=== PATIENT | female | born 1955 | race Caucasian/White ===

== ENCOUNTER 2024-08-26 07:56 | Inpatient (IN) ==
[2024-08-26 08:54] LABS: Hematocrit (blood only) 42.1 % (37.0-47.0); Hemoglobin 14.0 g/dl (12.0-16.0); Immature Granulocytes # (auto) 0.03 K/uL (0.01-0.20); Immature Granulocytes % (auto) 0.5 %; Mean Corpuscular Hemoglobin 28.9 pg (25.0-34.0); Mean Corpuscular Volume 86.8 fL (80.0-100.0); Platelet Count 206 K/uL (130-400); RDW Standard Deviation 45.0 fL (36.4-46.3); Red Blood Count 4.85 M/uL (4.20-5.40); White Blood Count 6.51 K/ul (4.8-10.8)
[2024-08-26 09:03] LABS: Alanine Aminotransferase 23.0 U/L (7-52); Albumin Globulin Ratio 1.5 (0.9-2); Albumin Level 4.2 gm/dl (3.4-5.0); Alkaline Phosphatase 64.0 U/L (34-104); Anion Gap 7.0 (3-11); Bilirubin,Total 1.6 mg/dl (0.2-1.0); Blood Urea Nitrogen 12.0 mg/dl (6-23); Calcium 9.7 mg/dl (8.6-10.3); Carbon Dioxide 25.0 mmol/L (21-32); Chloride 109.0 mmol/L (98-107); Creatinine Clr Calc Pharmacy 72.2 ml/min; Globulin 2.8 gm/dl (2.5-4.0); Glucose 101.0 mg/dl (70-99(Fasting)); Lipase 10.0 U/L (11-82); Magnesium 1.9 mg/dl (1.7-2.4); Potassium 4.0 mmol/L (3.5-5.1); Sodium 141.0 mmol/L (136-145); Total Protein 7.0 gm/dl (6.0-8.3)
--- NOTE | 2024-08-26 09:04 | XRay Report ---
EXAM: Radiograph of the Chest 1 View INDICATION: TECHNIQUE: Frontal view of the chest. COMPARISON: No relevant prior studies available. FINDINGS: Lungs and pleural spaces: Right lung hyperinflated and clear. There is volume loss in the left hemithorax with parenchymal and pleural scarring. The trachea is deviated to the left. Heart: Shape and configuration within normal limits allowing for technique. Mediastinum: Right paratracheal soft tissue density projecting over the spine. Bones/joints: No fracture, erosion or dislocation. Soft tissues: No abnormality noted. No radiopaque foreign body noted. Upper abdomen: No abnormality noted. IMPRESSION: Volume loss in the left lung consistent with scarring. Tracheal deviation is likely reflecting at least in part tethering. Mass effect from right paratracheal nodule or thyroid mass not excluded. ACT 112: N/A Electronically signed by Soledad Aguilar 08-26-2024 09:03 AM
[2024-08-26 09:22] LABS: INR 1.0 (0.9-1.1); Prothrombin Time 10.9 Seconds (9.0-12.0)
--- NOTE | 2024-08-26 10:10 | Emergency Department Note ---
Impression & Plan Generalized weakness, Acute UTI (urinary tract infection) ED Provider Note HISTORY OF PRESENT ILLNESS: Patient is a 69-year-old female presenting with multiple complaints. Patient states that since last night she has been feeling generally unwell. Reports that she feels very shaky and unsteady. She states that she feels like "I am burning up from the inside." She reports nausea but denies any vomiting. Denies any diarrhea. Reports some left upper quadrant abdominal pain. She started on Creon last night due to her decreased pancreatic function. She also reports she took her first dose of sertraline last night. She is unsure if she is having a reaction to the medication. She denies any measured fevers at home. She denies any chest pain but reports pain in her upper back. She denies any dysuria but reports that her urine was "red tinge at this morning." ROS: as above PHYSICAL EXAM: Constitutional: Patient appears in no acute distress. HENT: Head: Normocephalic and atraumatic. Eyes: EOMI, PERRL Mouth/Throat: Mucous membranes moist. Neck: Trachea midline. Neck supple. Cardiovascular: RRR, No murmurs, rubs or gallops. Intact distal pulses. Pulmonary/Chest: No respiratory distress. Breath sounds clear and equal bilaterally. No wheezes or rales. Abdominal: Abdomen soft, no tenderness, rebound or guarding. Musculoskeletal: No edema, tenderness or deformity noted. Skin: Warm and dry. No rash, erythema, pallor or cyanosis Psychiatric: Appropriate mood and affect for situation. Neurological: Alert and keenly responsive. CN II-XII grossly intact, moving all extremities equally and fully. MDM: - Vitals signs showed hypertension and bradycardia. - History obtained via patient. History as above. - Chronic conditions affecting care: COPD; lung cancer; GERD; sinusitis - Differential diagnoses include, but are not limited to: Pneumonia; viral syndrome; UTI; ACS; electrolyte abnormality - Order placed for continuous cardiac monitoring. At this time, monitor showed rate of 45 bpm with normal sinus rhythm, per my interpretation. - External medical records reviewed. ENT office visit note dated 09/03/2024 was reviewed. Patient was seen in the clinic for maxillary sinusitis. Plan is for endoscopic sinus surgery next week. - EKG image interpreted by myself showed normal sinus rhythm. Rate bradycardic at 47 bpm. QTc 474. No acute ischemic changes. - Laboratory workup interpreted by myself showed normal WBC; normal PT/INR; normal procalcitonin; stable electrolytes; elevated total bilirubin (1.6); normal troponin; normal CK; normal AST/ALT; normal lipase - CXR image reviewed by myself was negative for pneumonia, per my interpretation. Radiology notes of tracheal deviation "at least in part tethering and mass effect from the right peritracheal nodule or thyroid mass not excluded." - Viral respiratory panel negative - CT chest wo contrast showed multiple small groundglass infiltrates in the upper lobes and a small focus in the superior segment of the right lower lobe. There is are nonspecific densities. There is also noted to be scattered nonspecific noncalcified micronodules. - CT abdomen/pelvis wo contrast showed large fatty liver with no ductal dilatation and mild scarring of the left kidney. - UA showed evidence of infection - Patient given 1L NS, 4 mg IV zofran and 1g IV tylenol in ER. Given 2g IV rocephin for UTI. - Discussed results with the patient. She is still not feeling well and does not feel comfortable going home. She does report that that burning sensation that she presented with and that sensation of feeling hot inside has improved. This is her reported third UTI in the last month. - Discussion was had with case fitter about patient's case and need for admission - Hospitalist consulted for admission at 13:55. - Patient admitted to [facility] service for further evaluation and management. ASSESSMENT AND PLAN: Diagnosis: Generalized weakness; acute UTI Plan: Admit Past Med/Surg History Problem List (Updated 08/26/24 @ 14:01 by Angeline Langston MD) Acute UTI (urinary tract infection) (Acute) Generalized weakness (Acute) Encounter for pre-operative examination Dry mouth (Acute) Dysphagia Maxillary sinusitis Medical History Acid reflux Atherosclerotic heart disease follows w/ Dr Steiner, reason for plavix COPD (chronic obstructive pulmonary disease) uses inhalers daily, follows w/ Dr [place]ia [place] [facility] Dysphagia improved since dilation Elevated pancreatic enzyme currently under surveillance Endometriosis hx Fatty liver Gastroparesis eating small meals GERD (gastroesophageal reflux disease) History of COVID-19 (02/2024) no hosp; resolved History of esophageal dilatation (07/2024) Lung cancer (2023) no chemo or radiation Neuropathy bilat feet Raynauds syndrome Venous (peripheral) insufficiency occasional bilat edema, has not needed lasix in ~1 year Surgical History H/O hernia repair H/O tubal ligation History of appendectomy History of bronchoscopy History of esophagogastroduodenoscopy (EGD) (07/2024) History of lobectomy of lung (04/2023) lung cancer, upper left lobe, [facility] Hx of colonoscopy Hx of laparoscopy Family History Mother Heart disease Hypertension Social History Smoking Status: Former smoker Tobacco Type: Cigarettes Second Hand Exposure: No; Do You Dip or Chew Tobacco: No; Hx Alcohol Use: No Hx Substance Use: No Preferred Language: Bulgarian Communication Ability: Effective Runner On Required: No Beliefs That Will Affect Care: None marital status: Current Living Situation: Spouse current occupational status: retired Feels Safe at Home: Yes Gender Identity: Female Assistive Devices: Glasses Allergies Allergies Allergy/AdvReac Type Severity Reaction Status Date / Time aspirin Allergy Severe welts,turns Unverified 08/23/24 09:05 blue budesonide Allergy Unknown Palpitation Unverified 08/23/24 09:05 [From Breztri Aerosphere] s fluticasone furoate Allergy Unknown sob Unverified 08/23/24 09:05 [From Trelegy Ellipta] formoterol Allergy Unknown Palpitation Unverified 08/23/24 09:05 [From Breztri Aerosphere] s glycopyrrolate Allergy Unknown Palpitation Unverified 08/23/24 09:05 [From Breztri Aerosphere] s Iodinated Contrast Media Allergy Unknown welts Unverified 08/23/24 09:05 olodaterol Allergy Unknown Palpitation Unverified 08/23/24 09:05 [From Stiolto Respimat] s tiotropium Allergy Unknown Palpitation Unverified 08/23/24 09:57 [From Stiolto Respimat] s umeclidinium Allergy Unknown sob Unverified 08/23/24 09:57 [From [facility]] vilanterol Allergy Unknown sob Unverified 08/23/24 09:57 [From [facility]] Home Meds Home Medications Medication Instructions Recorded Confirmed amlodipine 5 mg tablet 0 mg PO QPM 06/20/24 08/26/24 cholecalciferol (vitamin D3) 50 50 mcg PO QAM 06/20/24 08/26/24 mcg (2,000 unit) capsule dicyclomine 10 mg capsule 10 mg PO BID PRN Abdominal Pain 06/20/24 08/26/24 epinephrine 0.3 mg/0.3 mL 0.3 mg IM Q10M PRN hives 06/20/24 08/26/24 injection, auto-injector furosemide 40 mg tablet (Lasix) 40 mg PO DAILY PRN Edema 06/20/24 08/26/24 olopatadine 0.2 % eye drops 1 drp ophthalmic (eye) DAILY PRN 06/20/24 08/26/24 Allergies potassium chloride 10 mEq 10 meq PO DAILY 06/20/24 08/26/24 tablet,extended release tiotropium bromide 1.25 2 puff inhalation QAM 06/20/24 08/26/24 mcg/actuation mist for inhalation (Spiriva Respimat) Neuro Renew 1 tab PO QAM 08/23/24 08/26/24 albuterol sulfate 90 mcg/actuation 2 puff inhalation QAM 08/23/24 08/26/24 aerosol inhaler biotin 1 mg capsule 1 mg PO DAILY 08/23/24 08/26/24 pantoprazole 40 mg tablet,delayed 40 mg PO BID 08/23/24 08/26/24 release triamcinolone acetonide 0.1 % 1 applic topical BID PRN hives 08/23/24 08/26/24 topical cream sertraline 50 mg tablet 25 mg PO HS 08/24/24 08/26/24 [id number] 1 - 2 cap PO DIRECTED 08/26/24 08/26/24 36,000-114,000-180,000 unit capsule,delay rel (Creon) Results & Data (ED) Vital Signs Vital Signs - 24 hr 08/26/24 07:59 08/26/24 08:27 08/26/24 08:34 Temperature 36.6 C Temperature Source Temporal Artery Scan Pulse Rate 60 50 L Pulse Rate [Right Finger] 52 L Pulse Rhythm [Right Finger] Pulse Strength [Right Finger] Respiratory Rate 18 16 Respiratory Effort / Characteristics Non-Labored Spontaneous Non-Labored Spontaneous Respiratory Depth Normal Normal Respiratory Pattern Regular Regular Blood Pressure 126/81 Blood Pressure [Right Arm] 162/87 H Blood Pressure Mean 96 Blood Pressure Mean [Right Arm] 112 Blood Pressure Position Sitting Blood Pressure Position [Right Arm] Pulse Oximetry 96 99 Oxygen Delivery Method Room Air Room Air Sepsis Recent Fever Within 48 Hours No Sepsis New/Unexplained Change in Mental Status N/A Sepsis Action Taken by Nursing No Action Required 08/26/24 08:40 08/26/24 09:25 08/26/24 09:53 Temperature Temperature Source Pulse Rate 46 L Pulse Rate [Right Finger] 45 L 44 L Pulse Rhythm [Right Finger] Pulse Strength [Right Finger] Respiratory Rate 16 14 20 Respiratory Effort / Characteristics Non-Labored Spontaneous Non-Labored Spontaneous Respiratory Depth Normal Normal Respiratory Pattern Regular Blood Pressure Blood Pressure [Right Arm] 139/80 150/81 H Blood Pressure Mean Blood Pressure Mean [Right Arm] 99 104 Blood Pressure Position Blood Pressure Position [Right Arm] Pulse Oximetry 96 98 Oxygen Delivery Method Room Air Room Air Room Air Sepsis Recent Fever Within 48 Hours Sepsis New/Unexplained Change in Mental Status Sepsis Action Taken by Nursing 08/26/24 10:47 08/26/24 12:00 08/26/24 12:38 Temperature Temperature Source Pulse Rate 45 L Pulse Rate [Right Finger] 46 L 41 L Pulse Rhythm [Right Finger] Regular Pulse Strength [Right Finger] Normal Respiratory Rate 16 20 Respiratory Effort / Characteristics Non-Labored Non-Labored Respiratory Depth Normal Normal Respiratory Pattern Regular Regular Blood Pressure Blood Pressure [Right Arm] 140/78 140/78 Blood Pressure Mean Blood Pressure Mean [Right Arm] 98 98 Blood Pressure Position Blood Pressure Position [Right Arm] Lying Pulse Oximetry 97 99 Oxygen Delivery Method Room Air Room Air Sepsis Recent Fever Within 48 Hours Sepsis New/Unexplained Change in Mental Status Sepsis Action Taken by Nursing Laboratory Data 08/26/24 08:15 08/26/24 08:15 Lab Results 08/26/24 08/26/24 08/26/24 Range/Units 08:15 09:35 12:39 WBC 6.51 (4.8-10.8) K/ul RBC 4.85 (4.20-5.40) M/uL Hgb 14.0 (12.0-16.0) g/dl Hct 42.1 (37.0-47.0) % MCV 86.8 (80.0-100.0) fL MCH 28.9 (25.0-34.0) pg MCHC 33.3 (32.0-36.0) g/dL RDW Std Deviation 45.0 (36.4-46.3) fL RDW Coeff of Armando 14.3 (11.5-14.5) % Plt Count 206 (130-400) K/uL MPV 10.7 (9.4-12.4) fL Immature Gran % (Auto) 0.5 % Neut % (Auto) 71.7 % Lymph % (Auto) 18.1 % [place] % (Auto) 6.6 % Eos % (Auto) 2.3 % Baso % (Auto) 0.8 % Neut # (Auto) 4.67 (1.40-6.50) K/uL Lymph # (Auto) 1.18 L (1.20-3.40) K/uL [place] # (Auto) 0.43 (0.11-0.59) K/uL Eos # (Auto) 0.15 (0.00-0.50) K/uL Baso # (Auto) 0.05 (0.00-0.20) K/uL Immature Gran # (Auto) 0.03 (0.01-0.20) K/uL PT 10.9 (9.0-12.0) Seconds INR 1.0 (0.9-1.1) Sodium 141 (136-145) mmol/L Potassium 4.0 (3.5-5.1) mmol/L Chloride 109 H (98-107) mmol/L Carbon Dioxide 25 (21-32) mmol/L Anion Gap 7 (3-11) BUN 12 (6-23) mg/dl Creatinine 0.93 (0.6-1.2) mg/dl Est Cr Clr Drug Dosing 72.2 ml/min eGFR 65.71 BUN/Creatinine Ratio 12.9 (10-20) Glucose 101 H (70-99(Fasting)) mg/dl Calcium 9.7 (8.6-10.3) mg/dl Magnesium 1.9 (1.7-2.4) mg/dl Total Bilirubin 1.6 H (0.2-1.0) mg/dl AST 19 (13-39) U/L ALT 23 (7-52) U/L Alkaline Phosphatase 64 (34-104) U/L Total Creatine Kinase 29 (26-192) U/L Troponin I High Sens 5.7 (0-14) pg/ml Total Protein 7.0 (6.0-8.3) gm/dl Albumin 4.2 (3.4-5.0) gm/dl Globulin 2.8 (2.5-4.0) gm/dl Albumin/Globulin Ratio 1.5 (0.9-2) Lipase 10 L (11-82) U/L Procalcitonin < 0.02 (0-0.5) ng/ml Urine Color Yellow Urine Appearance Cloudy A (Clear) Urine pH 6.0 (4.5-7.5) Ur Specific [place] 1.010 (1.000-1.030) Urine Protein Negative (Negative) Urine Glucose (UA) Negative (Negative) Urine Ketones Negative (Negative) Urine Blood Negative (Negative) Urine Nitrite Positive A (Negative) Urine Bilirubin Negative (Negative) Urine Urobilinogen Negative (Negative) Ur Leukocyte Esterase 3+ H (Negative) Urine WBC (Auto) >50 H (0-5) /hpf Urine RBC (Auto) 0-2 (0-2) /hpf U Hyaline Cast (Auto) 0-2 (0-2) /lpf U Epithel Cells (Auto) 0-2 (0-2) /hpf Urine Bacteria (Auto) 4+ H (None Seen) Urine Comment Adenovirus (PCR) Not Detected (NotDetected) B. pertussis DNA (PCR) Not Detected (NotDetected) B.parapertussis DNA PCR Not Detected (NotDetected) C. pneumoniae DNA (PCR) Not Detected (NotDetected) Coronavirus OC43 (PCR) Not Detected (NotDetected) Coronavirus HKU1 (PCR) Not Detected (NotDetected) Coronavirus 229E (PCR) Not Detected (NotDetected) SARS-CoV-2 (PCR) Not Detected (NotDetected) Coronavirus NL63 (PCR) Not Detected (NotDetected) Human Metapneumovir PCR Not Detected (NotDetected) Influenza Type A (PCR) Not Detected (NotDetected) Influenza Type B (PCR) Not Detected (NotDetected) M. pneumoniae (PCR) Not Detected (NotDetected) Parainfluenza 1 (PCR) Not Detected (NotDetected) Parainfluenza 2 (PCR) Not Detected (NotDetected) Parainfluenza 3 (PCR) Not Detected (NotDetected) Parainfluenza 4 (PCR) Not Detected (NotDetected) RSV (PCR) Not Detected (NotDetected) Entero/Rhino (PCR) Not Detected (NotDetected) Administered Medications Discontinued Medications Sodium Chloride (Nss) 1,000 mls @ 999 mls/hr IV .Q1H1M ONE Stop: 08/26/24 11:05 Last Infusion: 08/26/24 13:07 Dose: Infused Documented By: Admin: 08/26/24 10:48 Dose: 999 mls/hr Documented By: RHEA Acetaminophen (Ofirmev) 1,000 mg in 100 mls @ 400 mls/hr IV NOW STA Stop: 08/26/24 10:19 Last Infusion: 08/26/24 11:30 Dose: Infused Documented By: Admin: 08/26/24 10:52 Dose: 400 mls/hr Documented By: RHEA Ceftriaxone Sodium (Rocephin) 2,000 mg in 50 mls @ 100 mls/hr IV NOW STA Stop: 08/26/24 13:08 Last Infusion: 08/26/24 13:40 Dose: Infused Documented By: Admin: 08/26/24 13:03 Dose: 100 mls/hr Documented By: KYLE Ondansetron HCl (Ondansetron Inj 2 Mg/Ml 2 Ml Vial) 4 mg IV NOW STA Stop: 08/26/24 10:06 Last Admin: 08/26/24 10:48 Dose: 4 mg Documented By: RHEA Imaging Data Radiologist's Impression: Chest X-Ray 08/26/24 08:43 EXAM: Radiograph of the Chest 1 View INDICATION: TECHNIQUE: Frontal view of the chest. COMPARISON: No relevant prior studies available. FINDINGS: Lungs and pleural spaces: Right lung hyperinflated and clear. There is volume loss in the left hemithorax with parenchymal and pleural scarring. The trachea is deviated to the left. Heart: Shape and configuration within normal limits allowing for technique. Mediastinum: Right paratracheal soft tissue density projecting over the spine. Bones/joints: No fracture, erosion or dislocation. Soft tissues: No abnormality noted. No radiopaque foreign body noted. Upper abdomen: No abnormality noted. IMPRESSION: Volume loss in the left lung consistent with scarring. Tracheal deviation is likely reflecting at least in part tethering. Mass effect from right paratracheal nodule or thyroid mass not excluded. ACT 112: N/A Electronically signed by Soledad Aguilar 08-26-2024 09:03 AM Abdomen/Pelvis CT 08/26/24 09:54 EXAM: CT Chest Abdomen and Pelvis Without Intravenous Contrast INDICATION: Chest pain, shortness of breath, abdominal pain and vomiting. TECHNIQUE: Axial computed tomography images of the chest, abdomen and pelvis without intravenous contrast. Sagittal and coronal reformatted images were created and reviewed. This CT exam was performed using one or more of the following dose reduction techniques: automated exposure control, adjustment of the mA and/or kV according to patient size, and/or use of iterative reconstruction technique. COMPARISON: No relevant prior studies available. FINDINGS: Limitations: None. CHEST: Lungs and pleural spaces: Small patchy groundglass infiltrates noted in both upper lobes. Very small groundglass opacity noted in the superior segment of the right lower lobe. No confluent consolidation. There is a 6 mm oval fissural noncalcified nodule in the left lung base. There is a 4 mm noncalcified node medial left lower lobe adjacent to the aorta. There is a subpleural 4 mm right upper lobe noncalcified nodule. 3 mm noncalcified left upper lobe nodule series 3 image 14. There is a 3 mm oval fissural nodule right lung image 29. 7 x 4 mm noncalcified oval nodule right lower lobe. No significant effusion. No pneumothorax. Heart: No abnormality noted. Mediastinum: No abnormality noted. Thyroid: No abnormality noted. ABDOMEN: Liver: The liver is enlarged measuring 19.4 cm long. Hypodensity noted typical of fatty replacement. Smooth cortical contour. No mass or ductal dilation. Benign-appearing calcification in the left hepatic lobe. Gallbladder and bile ducts: No calcified stones or surrounding fluid. No ductal dilation. Pancreas: No pancreatic mass, calcification, inflammation or ductal dilation noted. Spleen: No significant abnormality noted. Adrenals: No significant abnormality noted. Kidneys and ureters: Simple right renal cyst/s. No simple cyst follow-up necessary. Left kidney appears normal. No renal stone, hydronephrosis or perinephric fluid. Mild cortical scarring left kidney. No stones or hydronephrosis. Stomach and bowel: Moderate amounts of stool in the colon and diffuse diverticulosis. Small amounts of fluid noted in the right colon. No obstruction. PELVIS: Appendix: No findings to suggest acute appendicitis. Bladder: Appears normal for the degree of filling. No stones or inflammation. No large mass. Masses may not be detected in the absence of opacification. Reproductive: No significant abnormality noted. CHEST, ABDOMEN and PELVIS: Intraperitoneal space: No free air. No significant fluid collection. Retroperitoneal space: No abnormality noted. No fluid collection. Bones/joints: No acute changes. Soft tissues: Right lower lateral abdominal wall thinning noted with a possible fat-containing hernia. Vasculature: There is moderate to marked atherosclerosis of the coronary arteries. Scattered atherosclerotic calcification throughout the thoracoabdominal aorta. No aneurysm. Lymph nodes: No enlarged nodes. IMPRESSION: 1. Extensive colonic diverticulosis without diverticulitis. 2. There are multiple small groundglass infiltrates mostly in the upper lobes with a small focus in the superior segment of the right lower lobe. There is no nonspecific densities likely reflecting infectious pneumonitis. Neoplasm and pulmonary infarcts thought less likely. 3. There are scattered nonspecific noncalcified micronodules. Fleischner Society Guidelines for low-risk patients recommend, follow-up chest CT at 3-6 months. If unchanged consider an additional follow-up CT at 18-24 months. For high-risk patients (smoking history or other known risk factors) initial follow-up chest CT at 3-6 months and if unchanged, 18-24 months. 4. Large fatty liver. No ductal dilatation. 5. Mild scarring of the left kidney. 6. Ending of the right lower lateral abdominal wall without clear hernia. ACT 112: N/A Electronically signed by Soledad Aguilar 08-26-2024 11:[address] 08/26/24 10:08 EXAM: CT Chest Abdomen and Pelvis Without Intravenous Contrast INDICATION: Chest pain, shortness of breath, abdominal pain and vomiting. TECHNIQUE: Axial computed tomography images of the chest, abdomen and pelvis without intravenous contrast. Sagittal and coronal reformatted images were created and reviewed. This CT exam was performed using one or more of the following dose reduction techniques: automated exposure control, adjustment of the mA and/or kV according to patient size, and/or use of iterative reconstruction technique. COMPARISON: No relevant prior studies available. FINDINGS: Limitations: None. CHEST: Lungs and pleural spaces: Small patchy groundglass infiltrates noted in both upper lobes. Very small groundglass opacity noted in the superior segment of the right lower lobe. No confluent consolidation. There is a 6 mm oval fissural noncalcified nodule in the left lung base. There is a 4 mm noncalcified node medial left lower lobe adjacent to the aorta. There is a subpleural 4 mm right upper lobe noncalcified nodule. 3 mm noncalcified left upper lobe nodule series 3 image 14. There is a 3 mm oval fissural nodule right lung image 29. 7 x 4 mm noncalcified oval nodule right lower lobe. No significant effusion. No pneumothorax. Heart: No abnormality noted. Mediastinum: No abnormality noted. Thyroid: No abnormality noted. ABDOMEN: Liver: The liver is enlarged measuring 19.4 cm long. Hypodensity noted typical of fatty replacement. Smooth cortical contour. No mass or ductal dilation. Benign-appearing calcification in the left hepatic lobe. Gallbladder and bile ducts: No calcified stones or surrounding fluid. No ductal dilation. Pancreas: No pancreatic mass, calcification, inflammation or ductal dilation noted. Spleen: No significant abnormality noted. Adrenals: No significant abnormality noted. Kidneys and ureters: Simple right renal cyst/s. No simple cyst follow-up necessary. Left kidney appears normal. No renal stone, hydronephrosis or perinephric fluid. Mild cortical scarring left kidney. No stones or hydronephrosis. Stomach and bowel: Moderate amounts of stool in the colon and diffuse diverticulosis. Small amounts of fluid noted in the right colon. No obstruction. PELVIS: Appendix: No findings to suggest acute appendicitis. Bladder: Appears normal for the degree of filling. No stones or inflammation. No large mass. Masses may not be detected in the absence of opacification. Reproductive: No significant abnormality noted. CHEST, ABDOMEN and PELVIS: Intraperitoneal space: No free air. No significant fluid collection. Retroperitoneal space: No abnormality noted. No fluid collection. Bones/joints: No acute changes. Soft tissues: Right lower lateral abdominal wall thinning noted with a possible fat-containing hernia. Vasculature: There is moderate to marked atherosclerosis of the coronary arteries. Scattered atherosclerotic calcification throughout the thoracoabdominal aorta. No aneurysm. Lymph nodes: No enlarged nodes. IMPRESSION: 1. Extensive colonic diverticulosis without diverticulitis. 2. There are multiple small groundglass infiltrates mostly in the upper lobes with a small focus in the superior segment of the right lower lobe. There is no nonspecific densities likely reflecting infectious pneumonitis. Neoplasm and pulmonary infarcts thought less likely. 3. There are scattered nonspecific noncalcified micronodules. Fleischner Society Guidelines for low-risk patients recommend, follow-up chest CT at 3-6 months. If unchanged consider an additional follow-up CT at 18-24 months. For high-risk patients (smoking history or other known risk factors) initial follow-up chest CT at 3-6 months and if unchanged, 18-24 months. 4. Large fatty liver. No ductal dilatation. 5. Mild scarring of the left kidney. 6. Ending of the right lower lateral abdominal wall without clear hernia. ACT 112: N/A Electronically signed by Soledad Aguilar 08-26-2024 11:04 AM Discharge Plan Visit Data Chief Complaint: Illness Stated Complaint: SHAKING, VOMITING IN MORN, REACTION TO SERTRALINE ED Provider: Angeline Langston Discharge Problem: Generalized weakness, Acute UTI (urinary tract infection) Condition: Fair Forms Stand Alone Forms: My [facility] Prescriptions Prescriptions: No Action amlodipine 5 mg tablet 0 mg PO QPM Patient Comments: Medication currently on hold per caregiver/spouse. olopatadine 0.2 % drops 1 drp ophthalmic (eye) DAILY PRN (Reason: Allergies) dicyclomine 10 mg capsule 10 mg PO BID PRN (Reason: Abdominal Pain) potassium chloride 10 mEq tablet extended release 10 meq PO DAILY furosemide [Lasix] 40 mg tablet 40 mg PO DAILY PRN (Reason: Edema) cholecalciferol (vitamin D3) 50 mcg (2,000 unit) capsule 50 mcg PO QAM epinephrine 0.3 mg/0.3 mL auto-injector 0.3 mg IM Q10M PRN (Reason: hives) Rx Instructions: for 2 doses Spiriva Respimat 1.25 mcg/actuation mist 2 puff inhalation QAM triamcinolone acetonide 0.1 % Cream 1 applic TOPICAL BID PRN (Reason: hives) pantoprazole 40 mg tablet,delayed release (DR/EC) 40 mg PO BID albuterol sulfate 90 mcg/actuation HFA aerosol inhaler 2 puff INHALATION QAM biotin 1 mg Capsule 1 mg PO DAILY Patient Comments: Medication currently on hold per caregiver/spouse. Neuro Renew 1 tab PO QAM Patient Comments: Medication currently on hold per caregiver/spouse. sertraline 50 mg Tablet 25 mg PO HS Creon 36,000-114,000- 180,000 unit capsule,delayed release(DR/EC) 1 - 2 cap PO DIRECTED MDD 10 CAPS/24HR Patient Comments: Take 2 capsules with first bite of each meal, 1 capsule with first bite of snacks (max 10 daily) Referrals Referrals: Mac Birmingham MD [Primary Care Provider] -
[2024-08-26 10:29] LABS: Appearance Urine Cloudy (Clear); Bacteria Urine Automated 4+ (None Seen); Cast Urine Automated 0-2 /lpf (0-2); Epithelial Cell Urine Auto 0-2 /hpf (0-2); Glucose Urine UA Negative (Negative); RBC Urine Automated 0-2 /hpf (0-2); WBC Urine Automated >50 /hpf (0-5)
[2024-08-26 10:34] LABS: Chlamydia pneumoniae PCR Not Detected (NotDetected); Coronavirus 229E PCR Not Detected (NotDetected); Coronavirus CoV-2 (COVID19)PCR Not Detected (NotDetected); Coronavirus HKU1 PCR Not Detected (NotDetected); Coronavirus NL63 PCR Not Detected (NotDetected); Coronavirus OC43PCR Not Detected (NotDetected); Human Metapneumovirus PCR Not Detected (NotDetected); Parainfluenza Virus 1 PCR Not Detected (NotDetected); Parainfluenza Virus 2 PCR Not Detected (NotDetected); Parainfluenza Virus 3 PCR Not Detected (NotDetected); Parainfluenza Virus 4 PCR Not Detected (NotDetected); Respiratory Syncytial VirusPCR Not Detected (NotDetected); Rhinovirus/Enterovirus PCR Not Detected (NotDetected)
[2024-08-26] MEDS: SODIUM CHLORIDE 0.9% 1,000 ML IV ONE (10:48)
[2024-08-26] MEDS: ONDANSETRON INJ 2 MG/ML 2 ML VIAL IV STA (10:48)
[2024-08-26] MEDS: ACETAMINOPHEN 1,000 MG/100 ML VIAL IV STA (10:52)
--- NOTE | 2024-08-26 11:04 | CT Scan Report ---
EXAM: CT Chest Abdomen and Pelvis Without Intravenous Contrast INDICATION: Chest pain, shortness of breath, abdominal pain and vomiting. TECHNIQUE: Axial computed tomography images of the chest, abdomen and pelvis without intravenous contrast. Sagittal and coronal reformatted images were created and reviewed. This CT exam was performed using one or more of the following dose reduction techniques: automated exposure control, adjustment of the mA and/or kV according to patient size, and/or use of iterative reconstruction technique. COMPARISON: No relevant prior studies available. FINDINGS: Limitations: None. CHEST: Lungs and pleural spaces: Small patchy groundglass infiltrates noted in both upper lobes. Very small groundglass opacity noted in the superior segment of the right lower lobe. No confluent consolidation. There is a 6 mm oval fissural noncalcified nodule in the left lung base. There is a 4 mm noncalcified node medial left lower lobe adjacent to the aorta. There is a subpleural 4 mm right upper lobe noncalcified nodule. 3 mm noncalcified left upper lobe nodule series 3 image 14. There is a 3 mm oval fissural nodule right lung image 29. 7 x 4 mm noncalcified oval nodule right lower lobe. No significant effusion. No pneumothorax. Heart: No abnormality noted. Mediastinum: No abnormality noted. Thyroid: No abnormality noted. ABDOMEN: Liver: The liver is enlarged measuring 19.4 cm long. Hypodensity noted typical of fatty replacement. Smooth cortical contour. No mass or ductal dilation. Benign-appearing calcification in the left hepatic lobe. Gallbladder and bile ducts: No calcified stones or surrounding fluid. No ductal dilation. Pancreas: No pancreatic mass, calcification, inflammation or ductal dilation noted. Spleen: No significant abnormality noted. Adrenals: No significant abnormality noted. Kidneys and ureters: Simple right renal cyst/s. No simple cyst follow-up necessary. Left kidney appears normal. No renal stone, hydronephrosis or perinephric fluid. Mild cortical scarring left kidney. No stones or hydronephrosis. Stomach and bowel: Moderate amounts of stool in the colon and diffuse diverticulosis. Small amounts of fluid noted in the right colon. No obstruction. PELVIS: Appendix: No findings to suggest acute appendicitis. Bladder: Appears normal for the degree of filling. No stones or inflammation. No large mass. Masses may not be detected in the absence of opacification. Reproductive: No significant abnormality noted. CHEST, ABDOMEN and PELVIS: Intraperitoneal space: No free air. No significant fluid collection. Retroperitoneal space: No abnormality noted. No fluid collection. Bones/joints: No acute changes. Soft tissues: Right lower lateral abdominal wall thinning noted with a possible fat-containing hernia. Vasculature: There is moderate to marked atherosclerosis of the coronary arteries. Scattered atherosclerotic calcification throughout the thoracoabdominal aorta. No aneurysm. Lymph nodes: No enlarged nodes. IMPRESSION: 1. Extensive colonic diverticulosis without diverticulitis. 2. There are multiple small groundglass infiltrates mostly in the upper lobes with a small focus in the superior segment of the right lower lobe. There is no nonspecific densities likely reflecting infectious pneumonitis. Neoplasm and pulmonary infarcts thought less likely. 3. There are scattered nonspecific noncalcified micronodules. Fleischner Society Guidelines for low-risk patients recommend, follow-up chest CT at 3-6 months. If unchanged consider an additional follow-up CT at 18-24 months. For high-risk patients (smoking history or other known risk factors) initial follow-up chest CT at 3-6 months and if unchanged, 18-24 months. 4. Large fatty liver. No ductal dilatation. 5. Mild scarring of the left kidney. 6. Ending of the right lower lateral abdominal wall without clear hernia. ACT 112: N/A Electronically signed by Soledad Aguilar 08-26-2024 11:04 AM
[2024-08-26 11:08] LABS: Creatine Kinase 29.0 U/L (26-192)
[2024-08-26] MEDS: cefTRIAXone SODIUM 2,000 MG/50 ML BAG IV STA (13:03)
--- NOTE | 2024-08-26 14:48 | History & Physical Report ---
Date of Service August 26, 2024 Assessment & Plan (1) Acute UTI (urinary tract infection): (2) Exocrine pancreatic insufficiency: (3) Delayed gastric emptying: (4) Bradycardia: Plan The patient is a 69-year-old female with a past medical history including bradycardia, delayed gastric emptying, exocrine pancreatic insufficiency, hypertension, GERD, COPD and dermatitis. She presents to the emergency department with symptoms that began after taking first dosages of Creon and sertraline last evening. She was reportedly on the list for delayed gastric emptying and exocrine pancreatic insufficiency, and since that time has had increased abdominal discomfort. Noticed that her urine has red tinge to it this morning. She follows with Dr. Steiner, cardiology from [place], for bradycardia, reports her heart rate is usually in the 40s. She has had decreased oral intake over the past few days due to GI issues. Urinalysis in the emergency department significant for urinary tract infection. In emergency department she received normal saline 1 L, Zofran 4 mg IV, Tylenol 1 g IV, and ceftriaxone 2 g IV. Urinary tract infection- Patient reports having had 2 recent urinary tract infections Follow urine culture and sensitivity Continue empiric ceftriaxone 2 g IV every 24 hours begun in the ED Patient is also showing moderate signs of dehydration Given 1 L normal saline in the ED Continue rehydration with NSS 80 mL/h x 1 L GI symptoms/delayed gastric emptying/exocrine pancreatic insufficiency- Would hold sertraline and Creon during admission Her symptoms likely began with the institution of both these medications with first dosing last evening She likely would be okay with Creon by starting 1 tablet with 1 meal daily, gradually increasing. She tends to be very sensitive to medications. Continue pantoprazole Continue dicyclomine as needed Bradycardia/hypertension Patient has been following with Dr. Steiner, cardiology in [place], whom she has seen recently She has a follow-up pending with him. Will admit her to PCU for heart monitoring in the interim. Continue amlodipine with hold parameters Pulmonary micronodules- [place] to be nonacute by radiology These can be followed up in outpatient setting History of Present Illness Chief Complaint: The patient presents to the emergency department with complaint of generally feeling unwell. She has generalized weakness and feels shaky. She has had ongoing issues with intermittent nausea associated with delayed gastric emptying and exocrine pancreatic insufficiency. She was started on Creon last evening, and also started her first dose of sertraline last evening. She feels that the combination of pills made her feel worse in general. She denies any urinary discomfort, but did note a reddish tinge to her urine this morning. Primary Care Provider: Mac Birmingham MD The patient is a 69-year-old female with a past medical history including bradycardia, delayed gastric emptying, exocrine pancreatic insufficiency, hypertension, GERD, COPD and dermatitis. She presents to the emergency department with symptoms that began after taking first dosages of Creon and sertraline last evening. She was reportedly on the list for delayed gastric emptying and exocrine pancreatic insufficiency, and since that time has had increased abdominal discomfort. Noticed that her urine has red tinge to it this morning. She follows with Dr. Steiner, cardiology from [place], for bradycardia, reports her heart rate is usually in the 40s. She has had decreased oral intake over the past few days due to GI issues. Urinalysis in the emergency department significant for urinary tract infection. In emergency department she received normal saline 1 L, Zofran 4 mg IV, Tylenol 1 g IV, and ceftriaxone 2 g IV. Allergies Allergy/AdvReac Type Severity Reaction Status Date / Time aspirin Allergy Severe welts,turns Unverified 08/23/24 09:05 blue budesonide Allergy Unknown Palpitation Unverified 08/23/24 09:05 [From Breztri Aerosphere] s fluticasone furoate Allergy Unknown sob Unverified 08/23/24 09:05 [From Trelegy Ellipta] formoterol Allergy Unknown Palpitation Unverified 08/23/24 09:05 [From Breztri Aerosphere] s glycopyrrolate Allergy Unknown Palpitation Unverified 08/23/24 09:05 [From Breztri Aerosphere] s Iodinated Contrast Media Allergy Unknown welts Unverified 08/23/24 09:05 olodaterol Allergy Unknown Palpitation Unverified 08/23/24 09:05 [From Stiolto Respimat] s tiotropium Allergy Unknown Palpitation Unverified 08/23/24 09:57 [From Stiolto Respimat] s umeclidinium Allergy Unknown sob Unverified 08/23/24 09:57 [From Trelegy Ellipta] vilanterol Allergy Unknown sob Unverified 08/23/24 09:57 [From Trelegy Ellipta] Home Medications Medication Instructions Recorded Confirmed Type amlodipine 5 mg tablet 0 mg PO QPM 06/20/24 08/26/24 History cholecalciferol (vitamin D3) 50 50 mcg PO QAM 06/20/24 08/26/24 History mcg (2,000 unit) capsule dicyclomine 10 mg capsule 10 mg PO BID PRN Abdominal Pain 06/20/24 08/26/24 History epinephrine 0.3 mg/0.3 mL 0.3 mg IM Q10M PRN hives 06/20/24 08/26/24 History injection, auto-injector furosemide 40 mg tablet (Lasix) 40 mg PO DAILY PRN Edema 06/20/24 08/26/24 History olopatadine 0.2 % eye drops 1 drp ophthalmic (eye) DAILY PRN 06/20/24 08/26/24 History Allergies potassium chloride 10 mEq 10 meq PO DAILY 06/20/24 08/26/24 History tablet,extended release tiotropium bromide 1.25 2 puff inhalation QAM 06/20/24 08/26/24 History mcg/actuation mist for inhalation (Spiriva Respimat) Neuro Renew 1 tab PO QAM 08/23/24 08/26/24 History albuterol sulfate 90 mcg/actuation 2 puff inhalation QAM 08/23/24 08/26/24 History aerosol inhaler biotin 1 mg capsule 1 mg PO DAILY 08/23/24 08/26/24 History pantoprazole 40 mg tablet,delayed 40 mg PO BID 08/23/24 08/26/24 History release triamcinolone acetonide 0.1 % 1 applic topical BID PRN hives 08/23/24 08/26/24 History topical cream sertraline 50 mg tablet 25 mg PO HS 08/24/24 08/26/24 History ssrrue-pgrlfkgx-grtrdyg 1 - 2 cap PO DIRECTED 08/26/24 08/26/24 History 36,000-114,000-180,000 unit capsule,delay rel (Creon) Past Med/Surg History Problem List (Updated 08/26/24 @ 14:48 by Edwin Perry MD) Bradycardia Delayed gastric emptying Exocrine pancreatic insufficiency Acute UTI (urinary tract infection) (Acute) Generalized weakness (Acute) Encounter for pre-operative examination Dry mouth (Acute) Dysphagia Maxillary sinusitis Medical History Acid reflux Atherosclerotic heart disease follows w/ Dr Steiner, reason for plavix COPD (chronic obstructive pulmonary disease) uses inhalers daily, follows w/ Dr Segovia [place] [facility] Dysphagia improved since dilation Elevated pancreatic enzyme currently under surveillance Endometriosis hx Fatty liver Gastroparesis eating small meals GERD (gastroesophageal reflux disease) History of COVID-19 (02/2024) no hosp; resolved History of esophageal dilatation (07/2024) Lung cancer (2023) no chemo or radiation Neuropathy bilat feet Raynauds syndrome Venous (peripheral) insufficiency occasional bilat edema, has not needed lasix in ~1 year Surgical History H/O hernia repair H/O tubal ligation History of appendectomy History of bronchoscopy History of esophagogastroduodenoscopy (EGD) (07/2024) History of lobectomy of lung (04/2023) lung cancer, upper left lobe, [facility] Hx of colonoscopy Hx of laparoscopy Family History Mother Heart disease Hypertension Social History Smoking Status: Former smoker Tobacco Type: Cigarettes Second Hand Exposure: No; Do You Dip or Chew Tobacco: No; Hx Alcohol Use: No Hx Substance Use: No Preferred Language: Burmese Communication Ability: Effective Owner/Photographer Required: No Beliefs That Will Affect Care: None marital status: Current Living Situation: Spouse current occupational status: retired Feels Safe at Home: Yes Gender Identity: Female Assistive Devices: Glasses Review of Systems Review of Systems: The patient denies chest pain, palpitations, shortness of breath, dyspnea on exertion, cough, lower extremity swelling, sore throat, vomiting, blood in urine. dysuria, urinary frequency or urgency, lightheadedness, dizziness, headache, memory loss, loss of consciousness, rash, abnormal bruising or bleeding, imbalance, focal weakness, numbness or tingling in arms or legs, generalized arthralgias or myalgias, back or neck pain, or night sweats. The review of systems is otherwise negative other than for that already noted above, and at least 10 systems have been reviewed. Physical Exam Physical Exam: The patient is awake, alert and oriented 3, well developed and well nourished, normocephalic and atraumatic, lying in bed and in no acute distress. HEENT--PERRL, EOMI, mucous membranes and oropharynx mildly dry. Neck--supple. No JVD. No bruits. Thyroid normal, trachea midline, no adenopathy. Heart--normal S1 and S2. No murmurs, rubs or gallops. Lungs--clear bilaterally, no respiratory distress, no accessory muscle use. Abdomen--normal bowel sounds and soft. Nontender. Nondistended. Extremities--no cyanosis or clubbing. No edema. Dermatologic--normal skin turgor, normal color, no abnormal lymph nodes, no rash. Neurologic--cranial nerves II through XII grossly intact. Rheumatologic--normal range of motion. Psychiatric--normal affect. Results & Data Results & Data Vital Signs (Past 12 Hours) Vital Signs Temp Pulse Pulse Resp BP BP Pulse Ox 08/26/24 12:38 45 L 08/26/24 12:00 41 L 20 140/78 99 08/26/24 10:47 46 L 16 140/78 97 08/26/24 09:53 44 L 20 150/81 H 98 08/26/24 09:25 45 L 14 139/80 96 08/26/24 08:40 46 L 16 08/26/24 08:34 50 L 08/26/24 08:27 52 L 16 162/87 H 99 08/26/24 07:59 36.6 C 60 18 126/81 96 O2 Del Method 08/26/24 12:38 08/26/24 12:00 Room Air 08/26/24 10:47 Room Air 08/26/24 09:53 Room Air 08/26/24 09:25 Room Air 08/26/24 08:40 Room Air 08/26/24 08:34 08/26/24 08:27 Room Air 08/26/24 07:59 Room Air Laboratory Results Laboratory Results WBC 6.51 K/ul (4.8-10.8) 08/26/24 08:15 RBC 4.85 M/uL (4.20-5.40) 08/26/24 08:15 Hgb 14.0 g/dl (12.0-16.0) 08/26/24 08:15 Hct 42.1 % (37.0-47.0) 08/26/24 08:15 MCV 86.8 fL (80.0-100.0) 08/26/24 08:15 MCH 28.9 pg (25.0-34.0) 08/26/24 08:15 MCHC 33.3 g/dL (32.0-36.0) 08/26/24 08:15 RDW Std Deviation 45.0 fL (36.4-46.3) 08/26/24 08:15 RDW Coeff of Armando 14.3 % (11.5-14.5) 08/26/24 08:15 Plt Count 206 K/uL (130-400) 08/26/24 08:15 MPV 10.7 fL (9.4-12.4) 08/26/24 08:15 Immature Gran % (Auto) 0.5 % 08/26/24 08:15 Neut % (Auto) 71.7 % 08/26/24 08:15 Lymph % (Auto) 18.1 % 08/26/24 08:15 Placer % (Auto) 6.6 % 08/26/24 08:15 Eos % (Auto) 2.3 % 08/26/24 08:15 Baso % (Auto) 0.8 % 08/26/24 08:15 Neut # (Auto) 4.67 K/uL (1.40-6.50) 08/26/24 08:15 Lymph # (Auto) 1.18 K/uL (1.20-3.40) L 08/26/24 08:15 Placer # (Auto) 0.43 K/uL (0.11-0.59) 08/26/24 08:15 Eos # (Auto) 0.15 K/uL (0.00-0.50) 08/26/24 08:15 Baso # (Auto) 0.05 K/uL (0.00-0.20) 08/26/24 08:15 Immature Gran # (Auto) 0.03 K/uL (0.01-0.20) 08/26/24 08:15 PT 10.9 Seconds (9.0-12.0) 08/26/24 08:15 INR 1.0 (0.9-1.1) 08/26/24 08:15 Sodium 141 mmol/L (136-145) 08/26/24 08:15 Potassium 4.0 mmol/L (3.5-5.1) 08/26/24 08:15 Chloride 109 mmol/L (98-107) H 08/26/24 08:15 Carbon Dioxide 25 mmol/L (21-32) 08/26/24 08:15 Anion Gap 7 (3-11) 08/26/24 08:15 BUN 12 mg/dl (6-23) 08/26/24 08:15 Creatinine 0.93 mg/dl (0.6-1.2) 08/26/24 08:15 Est Cr Clr Drug Dosing 72.2 ml/min 08/26/24 08:15 eGFR 65.71 08/26/24 08:15 BUN/Creatinine Ratio 12.9 (10-20) 08/26/24 08:15 Glucose 101 mg/dl (70-99(Fasting)) H 08/26/24 08:15 Lactate 0.8 mmol/L (0.4-2.0) 08/26/24 14:01 Calcium 9.7 mg/dl (8.6-10.3) 08/26/24 08:15 Magnesium 1.9 mg/dl (1.7-2.4) 08/26/24 08:15 Total Bilirubin 1.6 mg/dl (0.2-1.0) H 08/26/24 08:15 AST 19 U/L (13-39) 08/26/24 08:15 ALT 23 U/L (7-52) 08/26/24 08:15 Alkaline Phosphatase 64 U/L (34-104) 08/26/24 08:15 Total Creatine Kinase 29 U/L (26-192) 08/26/24 08:15 Troponin I High Sens 5.7 pg/ml (0-14) 08/26/24 08:15 Total Protein 7.0 gm/dl (6.0-8.3) 08/26/24 08:15 Albumin 4.2 gm/dl (3.4-5.0) 08/26/24 08:15 Globulin 2.8 gm/dl (2.5-4.0) 08/26/24 08:15 Albumin/Globulin Ratio 1.5 (0.9-2) 08/26/24 08:15 Lipase 10 U/L (11-82) L 08/26/24 08:15 Procalcitonin < 0.02 ng/ml (0-0.5) 08/26/24 12:39 Urine Color Yellow 08/26/24 08:15 Urine Appearance Cloudy (Clear) A 08/26/24 08:15 Urine pH 6.0 (4.5-7.5) 08/26/24 08:15 Ur Specific [place] 1.010 (1.000-1.030) 08/26/24 08:15 Urine Protein Negative (Negative) 08/26/24 08:15 Urine Glucose (UA) Negative (Negative) 08/26/24 08:15 Urine Ketones Negative (Negative) 08/26/24 08:15 Urine Blood Negative (Negative) 08/26/24 08:15 Urine Nitrite Positive (Negative) A 08/26/24 08:15 Urine Bilirubin Negative (Negative) 08/26/24 08:15 Urine Urobilinogen Negative (Negative) 08/26/24 08:15 Ur Leukocyte Esterase 3+ (Negative) H 08/26/24 08:15 Urine WBC (Auto) >50 /hpf (0-5) H 08/26/24 08:15 Urine RBC (Auto) 0-2 /hpf (0-2) 08/26/24 08:15 U Hyaline Cast (Auto) 0-2 /lpf (0-2) 08/26/24 08:15 U Epithel Cells (Auto) 0-2 /hpf (0-2) 08/26/24 08:15 Urine Bacteria (Auto) 4+ (None Seen) H 08/26/24 08:15 Urine Comment 08/26/24 08:15 Adenovirus (PCR) Not Detected (NotDetected) 08/26/24 09:35 B. pertussis DNA (PCR) Not Detected (NotDetected) 08/26/24 09:35 B.parapertussis DNA PCR Not Detected (NotDetected) 08/26/24 09:35 C. pneumoniae DNA (PCR) Not Detected (NotDetected) 08/26/24 09:35 Coronavirus OC43 (PCR) Not Detected (NotDetected) 08/26/24 09:35 Coronavirus HKU1 (PCR) Not Detected (NotDetected) 08/26/24 09:35 Coronavirus 229E (PCR) Not Detected (NotDetected) 08/26/24 09:35 SARS-CoV-2 (PCR) Not Detected (NotDetected) 08/26/24 09:35 Coronavirus NL63 (PCR) Not Detected (NotDetected) 08/26/24 09:35 Human Metapneumovir PCR Not Detected (NotDetected) 08/26/24 09:35 Influenza Type A (PCR) Not Detected (NotDetected) 08/26/24 09:35 Influenza Type B (PCR) Not Detected (NotDetected) 08/26/24 09:35 M. pneumoniae (PCR) Not Detected (NotDetected) 08/26/24 09:35 Parainfluenza 1 (PCR) Not Detected (NotDetected) 08/26/24 09:35 Parainfluenza 2 (PCR) Not Detected (NotDetected) 08/26/24 09:35 Parainfluenza 3 (PCR) Not Detected (NotDetected) 08/26/24 09:35 Parainfluenza 4 (PCR) Not Detected (NotDetected) 08/26/24 09:35 RSV (PCR) Not Detected (NotDetected) 08/26/24 09:35 Entero/Rhino (PCR) Not Detected (NotDetected) 08/26/24 09:35 Impressions Chest X-Ray 08/26/24 08:43 EXAM: Radiograph of the Chest 1 View INDICATION: TECHNIQUE: Frontal view of the chest. COMPARISON: No relevant prior studies available. FINDINGS: Lungs and pleural spaces: Right lung hyperinflated and clear. There is volume loss in the left hemithorax with parenchymal and pleural scarring. The trachea is deviated to the left. Heart: Shape and configuration within normal limits allowing for technique. Mediastinum: Right paratracheal soft tissue density projecting over the spine. Bones/joints: No fracture, erosion or dislocation. Soft tissues: No abnormality noted. No radiopaque foreign body noted. Upper abdomen: No abnormality noted. IMPRESSION: Volume loss in the left lung consistent with scarring. Tracheal deviation is likely reflecting at least in part tethering. Mass effect from right paratracheal nodule or thyroid mass not excluded. ACT 112: N/A Electronically signed by Soledad Aguilar 08-26-2024 09:03 AM Abdomen/Pelvis CT 08/26/24 09:54 EXAM: CT Chest Abdomen and Pelvis Without Intravenous Contrast INDICATION: Chest pain, shortness of breath, abdominal pain and vomiting. TECHNIQUE: Axial computed tomography images of the chest, abdomen and pelvis without intravenous contrast. Sagittal and coronal reformatted images were created and reviewed. This CT exam was performed using one or more of the following dose reduction techniques: automated exposure control, adjustment of the mA and/or kV according to patient size, and/or use of iterative reconstruction technique. COMPARISON: No relevant prior studies available. FINDINGS: Limitations: None. CHEST: Lungs and pleural spaces: Small patchy groundglass infiltrates noted in both upper lobes. Very small groundglass opacity noted in the superior segment of the right lower lobe. No confluent consolidation. There is a 6 mm oval fissural noncalcified nodule in the left lung base. There is a 4 mm noncalcified node medial left lower lobe adjacent to the aorta. There is a subpleural 4 mm right upper lobe noncalcified nodule. 3 mm noncalcified left upper lobe nodule series 3 image 14. There is a 3 mm oval fissural nodule right lung image 29. 7 x 4 mm noncalcified oval nodule right lower lobe. No significant effusion. No pneumothorax. Heart: No abnormality noted. Mediastinum: No abnormality noted. Thyroid: No abnormality noted. ABDOMEN: Liver: The liver is enlarged measuring 19.4 cm long. Hypodensity noted typical of fatty replacement. Smooth cortical contour. No mass or ductal dilation. Benign-appearing calcification in the left hepatic lobe. Gallbladder and bile ducts: No calcified stones or surrounding fluid. No ductal dilation. Pancreas: No pancreatic mass, calcification, inflammation or ductal dilation noted. Spleen: No significant abnormality noted. Adrenals: No significant abnormality noted. Kidneys and ureters: Simple right renal cyst/s. No simple cyst follow-up necessary. Left kidney appears normal. No renal stone, hydronephrosis or perinephric fluid. Mild cortical scarring left kidney. No stones or hydronephrosis. Stomach and bowel: Moderate amounts of stool in the colon and diffuse diverticulosis. Small amounts of fluid noted in the right colon. No obstruction. PELVIS: Appendix: No findings to suggest acute appendicitis. Bladder: Appears normal for the degree of filling. No stones or inflammation. No large mass. Masses may not be detected in the absence of opacification. Reproductive: No significant abnormality noted. CHEST, ABDOMEN and PELVIS: Intraperitoneal space: No free air. No significant fluid collection. Retroperitoneal space: No abnormality noted. No fluid collection. Bones/joints: No acute changes. Soft tissues: Right lower lateral abdominal wall thinning noted with a possible fat-containing hernia. Vasculature: There is moderate to marked atherosclerosis of the coronary arteries. Scattered atherosclerotic calcification throughout the thoracoabdominal aorta. No aneurysm. Lymph nodes: No enlarged nodes. IMPRESSION: 1. Extensive colonic diverticulosis without diverticulitis. 2. There are multiple small groundglass infiltrates mostly in the upper lobes with a small focus in the superior segment of the right lower lobe. There is no nonspecific densities likely reflecting infectious pneumonitis. Neoplasm and pulmonary infarcts thought less likely. 3. There are scattered nonspecific noncalcified micronodules. Fleischner Society Guidelines for low-risk patients recommend, follow-up chest CT at 3-6 months. If unchanged consider an additional follow-up CT at 18-24 months. For high-risk patients (smoking history or other known risk factors) initial follow-up chest CT at 3-6 months and if unchanged, 18-24 months. 4. Large fatty liver. No ductal dilatation. 5. Mild scarring of the left kidney. 6. Ending of the right lower lateral abdominal wall without clear hernia. ACT 112: N/A Electronically signed by Soledad Aguilar 08-26-2024 11:[address] 08/26/24 10:08 EXAM: CT Chest Abdomen and Pelvis Without Intravenous Contrast INDICATION: Chest pain, shortness of breath, abdominal pain and vomiting. TECHNIQUE: Axial computed tomography images of the chest, abdomen and pelvis without intravenous contrast. Sagittal and coronal reformatted images were created and reviewed. This CT exam was performed using one or more of the following dose reduction techniques: automated exposure control, adjustment of the mA and/or kV according to patient size, and/or use of iterative reconstruction technique. COMPARISON: No relevant prior studies available. FINDINGS: Limitations: None. CHEST: Lungs and pleural spaces: Small patchy groundglass infiltrates noted in both upper lobes. Very small groundglass opacity noted in the superior segment of the right lower lobe. No confluent consolidation. There is a 6 mm oval fissural noncalcified nodule in the left lung base. There is a 4 mm noncalcified node medial left lower lobe adjacent to the aorta. There is a subpleural 4 mm right upper lobe noncalcified nodule. 3 mm noncalcified left upper lobe nodule series 3 image 14. There is a 3 mm oval fissural nodule right lung image 29. 7 x 4 mm noncalcified oval nodule right lower lobe. No significant effusion. No pneumothorax. Heart: No abnormality noted. Mediastinum: No abnormality noted. Thyroid: No abnormality noted. ABDOMEN: Liver: The liver is enlarged measuring 19.4 cm long. Hypodensity noted typical of fatty replacement. Smooth cortical contour. No mass or ductal dilation. Benign-appearing calcification in the left hepatic lobe. Gallbladder and bile ducts: No calcified stones or surrounding fluid. No ductal dilation. Pancreas: No pancreatic mass, calcification, inflammation or ductal dilation noted. Spleen: No significant abnormality noted. Adrenals: No significant abnormality noted. Kidneys and ureters: Simple right renal cyst/s. No simple cyst follow-up necessary. Left kidney appears normal. No renal stone, hydronephrosis or perinephric fluid. Mild cortical scarring left kidney. No stones or hydronephrosis. Stomach and bowel: Moderate amounts of stool in the colon and diffuse diverticulosis. Small amounts of fluid noted in the right colon. No obstruction. PELVIS: Appendix: No findings to suggest acute appendicitis. Bladder: Appears normal for the degree of filling. No stones or inflammation. No large mass. Masses may not be detected in the absence of opacification. Reproductive: No significant abnormality noted. CHEST, ABDOMEN and PELVIS: Intraperitoneal space: No free air. No significant fluid collection. Retroperitoneal space: No abnormality noted. No fluid collection. Bones/joints: No acute changes. Soft tissues: Right lower lateral abdominal wall thinning noted with a possible fat-containing hernia. Vasculature: There is moderate to marked atherosclerosis of the coronary arteries. Scattered atherosclerotic calcification throughout the thoracoabdominal aorta. No aneurysm. Lymph nodes: No enlarged nodes. IMPRESSION: 1. Extensive colonic diverticulosis without diverticulitis. 2. There are multiple small groundglass infiltrates mostly in the upper lobes with a small focus in the superior segment of the right lower lobe. There is no nonspecific densities likely reflecting infectious pneumonitis. Neoplasm and pulmonary infarcts thought less likely. 3. There are scattered nonspecific noncalcified micronodules. Fleischner Society Guidelines for low-risk patients recommend, follow-up chest CT at 3-6 months. If unchanged consider an additional follow-up CT at 18-24 months. For high-risk patients (smoking history or other known risk factors) initial follow-up chest CT at 3-6 months and if unchanged, 18-24 months. 4. Large fatty liver. No ductal dilatation. 5. Mild scarring of the left kidney. 6. Ending of the right lower lateral abdominal wall without clear hernia. ACT 112: N/A Electronically signed by Soledad Aguilar 08-26-2024 11:04 AM Code Status & VTE Plan Code Status Full code VTE Prophylaxis Plan VTE Prophylaxis will be ordered: Yes PG Care Time/CCT Total # of Minutes Spent Total Time Spent with Patient: Total time spent is greater than 50% in coordination of care (as documented) at patient's floor/unit and/or counseling patient: Coding Level of Care Code 02699 INT INP/OBS CARE 3/75MIN Diagnoses Acute UTI (urinary tract infection) N39.0 Exocrine pancreatic insufficiency K86.81 Delayed gastric emptying K30 Bradycardia R00.1
[2024-08-26] MEDS: NSS + 20MEQ KCL 20 MEQ/1,000 ML BAG IV SCH (15:25)
[2024-08-26] MEDS ORDERED: DICYCLOMINE HCL 10 MG CAP PO PRN (16:20)
[2024-08-26] MEDS ORDERED: TRIAMCINOLONE ACET 0.1% CR 15 GM TUBE TOP PRN (16:20)
[2024-08-26] MEDS: ONDANSETRON INJ 2 MG/ML 2 ML VIAL IV PRN (17:14)
[2024-08-26] MEDS: ACETAMINOPHEN 325 MG TAB PO PRN (17:17)
[2024-08-26] MEDS ORDERED: PROCHLORPERAZINE 10 MG in SYRINGE 8 ML IV PRN (18:02)
[2024-08-26] MEDS: PANTOprazole 40 MG/10 ML SYR IV ONE (18:46)
[2024-08-27 06:31] LABS: Hematocrit (blood only) 37.7 % (37.0-47.0); Hemoglobin 12.2 g/dl (12.0-16.0); Immature Granulocytes # (auto) 0.01 K/uL (0.01-0.20); Immature Granulocytes % (auto) 0.2 %; Mean Corpuscular Hemoglobin 28.4 pg (25.0-34.0); Mean Corpuscular Volume 87.7 fL (80.0-100.0); Platelet Count 173 K/uL (130-400); RDW Standard Deviation 45.8 fL (36.4-46.3); Red Blood Count 4.30 M/uL (4.20-5.40); White Blood Count 5.28 K/ul (4.8-10.8)
[2024-08-27 06:53] LABS: Alanine Aminotransferase 18.0 U/L (7-52); Albumin Globulin Ratio 1.5 (0.9-2); Albumin Level 3.5 gm/dl (3.4-5.0); Alkaline Phosphatase 53.0 U/L (34-104); Anion Gap 6.0 (3-11); Bilirubin,Total 1.2 mg/dl (0.2-1.0); Blood Urea Nitrogen 10.0 mg/dl (6-23); Calcium 8.9 mg/dl (8.6-10.3); Carbon Dioxide 25.0 mmol/L (21-32); Chloride 111.0 mmol/L (98-107); Creatinine Clr Calc Pharmacy 75.6 ml/min; Globulin 2.3 gm/dl (2.5-4.0); Glucose 86.0 mg/dl (70-99(Fasting)); Magnesium 1.9 mg/dl (1.7-2.4); Potassium 4.0 mmol/L (3.5-5.1); Sodium 142.0 mmol/L (136-145); Total Protein 5.8 gm/dl (6.0-8.3)
[2024-08-27] MEDS: PANTOprazole 40 MG/10 ML SYR IV SCH (08:55)
[2024-08-27] MEDS: UMECLIDINIUM BROMIDE 62.5MCG/BLISTER 7 PUFFS/INHALER INH SCH (08:56)
[2024-08-27] MEDS: CHOLECALCIFEROL 25 MCG (1000 UNITS) TAB PO SCH (08:56)
[2024-08-27] MEDS ORDERED: NON-FORMULARY MEDICATION (Biotin 1 mg Capsule) PO SCH (09:00)
[2024-08-27] MEDS ORDERED: ALBUTEROL HFA 8 GM INHALER INH SCH (09:00)
[2024-08-27] MEDS: POTASSIUM CHLORIDE 10 MEQ TABCR PO SCH (09:55)
[2024-08-27] MEDS: CETIRIZINE HCL 10 MG TABLET PO ONE (09:55)
--- NOTE | 2024-08-27 11:15 | Gastrointestinal Consultation ---
Date of Consultation August 27, 2024 Assessment & Plan (1) Delayed gastric emptying: I am not completely clear why she was admitted. She did have a "spell" of severe right lower abdominal pain. She has had recent colonoscopy that was unremarkable and CT in ED only showed possible constipation. She feels it is related to the new meds of sertraline and creon. She was just started on these but tells me she gets these spells about once a week or so. Most likely her pain is related to adhesive disease from ruptured appendix/endometriosis and there is not much to do for that other than treat pain/spasm when it occurs She has had full workup. With regards to her "delayed gastric emptying" and "exocrine pancreatic insufficiency" these are issues that should be addressed by her primary GI team as they are chronic issues if they are even issues at all. Her pain is gone now and there is no further workup to be done from a GI standpoint. History of Present Illness Reason for Consultation: delayed gastric emptying Attending Physician: Markos Ocampo History of Present Illness 69 year old female who tells me her troubles started in April. She was waking at night choking. She thought she might be refluxing or she might have sinus issues. She saw ENT and was told she did have sinus issues and she says plans have been made to open her sinuses. She says she throws up white foam all of the time--she says she throws it up, she is no regurgitating it. She has seen GI in [place] and they did a gastric emptying study on her at [facility] in [place] and she has been told she has gastroparesis and has been put on a gastroparesis diet with multiple small meals throughout the day. She had an "emergent" endoscopy last month that was normal other than she was dilated--this was done in [place]. She had a colonoscopy last year that was normal. She is being treated with double dose PPI and isn't doing that well according to her. In the past, she says she was on nexium and did well on it but her PCP decided she needed to be changed to protonix and pepcid which is not helping her as much. She says she cannot tolerate pepcid. When I asked her why she got admitted she says about once a week she will wake up with "severe" right lower abdominal pain. She also developed a burning across her chest from one arm to the other. She feels it was related to being started on sertraline and creon. She feels the creon is too strong for her. She is on creon because she had a pancreatic elastase done that was "mid range" at 177. She was not having any symptoms of diarrhea or bloating at the time. The pain is gone now. She says she has had a ruptured appendix and problems with her ovary on the right side as well as endometriosis there. CT does not show any issues in her abdomen. Allergies Allergy/AdvReac Type Severity Reaction Status Date / Time aspirin Allergy Severe welts,turns Unverified 08/23/24 09:05 blue budesonide Allergy Unknown Palpitation Unverified 08/23/24 09:05 [From Breztri Aerosphere] s fluticasone furoate Allergy Unknown sob Unverified 08/23/24 09:05 [From Trelegy Ellipta] formoterol Allergy Unknown Palpitation Unverified 08/23/24 09:05 [From Breztri Aerosphere] s glycopyrrolate Allergy Unknown Palpitation Unverified 08/23/24 09:05 [From Breztri Aerosphere] s Iodinated Contrast Media Allergy Unknown welts Unverified 08/23/24 09:05 olodaterol Allergy Unknown Palpitation Unverified 08/23/24 09:05 [From Stiolto Respimat] s tiotropium Allergy Unknown Palpitation Unverified 08/23/24 09:57 [From Stiolto Respimat] s umeclidinium Allergy Unknown sob Unverified 08/23/24 09:57 [From Trelegy Ellipta] vilanterol Allergy Unknown sob Unverified 08/23/24 09:57 [From Trelegy Ellipta] Home Medications Medication Instructions Recorded Confirmed Type amlodipine 5 mg tablet 0 mg PO QPM 06/20/24 08/26/24 History cholecalciferol (vitamin D3) 50 50 mcg PO QAM 06/20/24 08/26/24 History mcg (2,000 unit) capsule dicyclomine 10 mg capsule 10 mg PO BID PRN Abdominal Pain 06/20/24 08/26/24 History epinephrine 0.3 mg/0.3 mL 0.3 mg IM Q10M PRN hives 06/20/24 08/26/24 History injection, auto-injector furosemide 40 mg tablet (Lasix) 40 mg PO DAILY PRN Edema 06/20/24 08/26/24 History olopatadine 0.2 % eye drops 1 drp ophthalmic (eye) DAILY PRN 06/20/24 08/26/24 History Allergies potassium chloride 10 mEq 10 meq PO DAILY 06/20/24 08/26/24 History tablet,extended release tiotropium bromide 1.25 2 puff inhalation QAM 06/20/24 08/26/24 History mcg/actuation mist for inhalation (Spiriva Respimat) Neuro Renew 1 tab PO QAM 08/23/24 08/26/24 History albuterol sulfate 90 mcg/actuation 2 puff inhalation QAM 08/23/24 08/26/24 History aerosol inhaler biotin 1 mg capsule 1 mg PO DAILY 08/23/24 08/26/24 History pantoprazole 40 mg tablet,delayed 40 mg PO BID 08/23/24 08/26/24 History release triamcinolone acetonide 0.1 % 1 applic topical BID PRN hives 08/23/24 08/26/24 History topical cream sertraline 50 mg tablet 25 mg PO HS 08/24/24 08/26/24 History bjxpxm-ghejrfoj-djbbwsx 1 - 2 cap PO DIRECTED 08/26/24 08/26/24 History 36,000-114,000-180,000 unit capsule,delay rel (Creon) Patient History Medical History Atherosclerotic heart disease follows w/ Dr Steiner, reason for plavix History of esophageal dilatation (07/2024) Raynauds syndrome History of COVID-19 (02/2024) no hosp; resolved Elevated pancreatic enzyme currently under surveillance GERD (gastroesophageal reflux disease) Gastroparesis eating small meals Fatty liver Neuropathy bilat feet Venous (peripheral) insufficiency occasional bilat edema, has not needed lasix in ~1 year Dysphagia improved since dilation Endometriosis hx Lung cancer (2023) no chemo or radiation Acid reflux COPD (chronic obstructive pulmonary disease) uses inhalers daily, follows w/ [facility] Surgical History History of bronchoscopy Hx of colonoscopy Hx of laparoscopy History of esophagogastroduodenoscopy (EGD) (07/2024) History of lobectomy of lung (04/2023) lung cancer, upper left lobe, [facility] H/O tubal ligation H/O hernia repair History of appendectomy Family History Mother Heart disease Hypertension Social History Smoking Status: Former smoker Tobacco Type: Cigarettes Second Hand Exposure: No; Do You Dip or Chew Tobacco: No; Hx Alcohol Use: No Hx Substance Use: No Preferred Language: Tanzanian Communication Ability: Effective Statistician Required: No Beliefs That Will Affect Care: None marital status: Current Living Situation: Spouse current occupational status: retired Feels Safe at Home: Yes Gender Identity: Female Assistive Devices: Glasses Physical Exam Physical Exam: pleasant female in no distress Constitutional: + obese Neck: trachea midline, no thyromegaly Respiratory: normal respiratory effort, lungs clear to auscultation Cardiovascular: RRR, no murmur, no edema Gastrointestinal (Abdomen): normal bowel sounds, soft, nontender, no hepatosplenomegaly Results & Data Vital Signs (Past 12 Hours) Vital Signs Temp Pulse Pulse Resp BP Pulse Ox O2 Del Method 08/27/24 08:00 36.7 C 60 16 131/74 96 Room Air 08/27/24 03:00 36.9 C 52 L 13 135/80 95 Room Air 08/27/24 00:00 47 L Laboratory Results 08/27/24 08/26/24 08/26/24 Range/Units 06:05 14:01 12:39 WBC 5.28 (4.8-10.8) K/ul RBC 4.30 (4.20-5.40) M/uL Hgb 12.2 (12.0-16.0) g/dl Hct 37.7 (37.0-47.0) % MCV 87.7 (80.0-100.0) fL MCH 28.4 (25.0-34.0) pg MCHC 32.4 (32.0-36.0) g/dL RDW Std Deviation 45.8 (36.4-46.3) fL RDW Coeff of Armando 14.3 (11.5-14.5) % Plt Count 173 (130-400) K/uL MPV 10.6 (9.4-12.4) fL Immature Gran % (Auto) 0.2 % Neut % (Auto) 63.9 % Lymph % (Auto) 22.2 % Wallace % (Auto) 7.6 % Eos % (Auto) 5.3 % Baso % (Auto) 0.8 % Neut # (Auto) 3.38 (1.40-6.50) K/uL Lymph # (Auto) 1.17 L (1.20-3.40) K/uL Wallace # (Auto) 0.40 (0.11-0.59) K/uL Eos # (Auto) 0.28 (0.00-0.50) K/uL Baso # (Auto) 0.04 (0.00-0.20) K/uL Immature Gran # (Auto) 0.01 (0.01-0.20) K/uL Sodium 142 (136-145) mmol/L Potassium 4.0 (3.5-5.1) mmol/L Chloride 111 H (98-107) mmol/L Carbon Dioxide 25 (21-32) mmol/L Anion Gap 6 (3-11) BUN 10 (6-23) mg/dl Creatinine 0.88 (0.6-1.2) mg/dl Est Cr Clr Drug Dosing 75.6 ml/min eGFR 70.22 BUN/Creatinine Ratio 11.4 (10-20) Glucose 86 (70-99(Fasting)) mg/dl Lactate 0.8 (0.4-2.0) mmol/L Calcium 8.9 (8.6-10.3) mg/dl Magnesium 1.9 (1.7-2.4) mg/dl Total Bilirubin 1.2 H (0.2-1.0) mg/dl AST 16 (13-39) U/L ALT 18 (7-52) U/L Alkaline Phosphatase 53 (34-104) U/L Total Protein 5.8 L (6.0-8.3) gm/dl Albumin 3.5 (3.4-5.0) gm/dl Globulin 2.3 L (2.5-4.0) gm/dl Albumin/Globulin Ratio 1.5 (0.9-2) Procalcitonin < 0.02 (0-0.5) ng/ml Diagnostic Findings Chest X-Ray 08/26/24 08:43 EXAM: Radiograph of the Chest 1 View INDICATION: TECHNIQUE: Frontal view of the chest. COMPARISON: No relevant prior studies available. FINDINGS: Lungs and pleural spaces: Right lung hyperinflated and clear. There is volume loss in the left hemithorax with parenchymal and pleural scarring. The trachea is deviated to the left. Heart: Shape and configuration within normal limits allowing for technique. Mediastinum: Right paratracheal soft tissue density projecting over the spine. Bones/joints: No fracture, erosion or dislocation. Soft tissues: No abnormality noted. No radiopaque foreign body noted. Upper abdomen: No abnormality noted. IMPRESSION: Volume loss in the left lung consistent with scarring. Tracheal deviation is likely reflecting at least in part tethering. Mass effect from right paratracheal nodule or thyroid mass not excluded. ACT 112: N/A Electronically signed by Soledad Aguilar 08-26-2024 09:03 AM Abdomen/Pelvis CT 08/26/24 09:54 EXAM: CT Chest Abdomen and Pelvis Without Intravenous Contrast INDICATION: Chest pain, shortness of breath, abdominal pain and vomiting. TECHNIQUE: Axial computed tomography images of the chest, abdomen and pelvis without intravenous contrast. Sagittal and coronal reformatted images were created and reviewed. This CT exam was performed using one or more of the following dose reduction techniques: automated exposure control, adjustment of the mA and/or kV according to patient size, and/or use of iterative reconstruction technique. COMPARISON: No relevant prior studies available. FINDINGS: Limitations: None. CHEST: Lungs and pleural spaces: Small patchy groundglass infiltrates noted in both upper lobes. Very small groundglass opacity noted in the superior segment of the right lower lobe. No confluent consolidation. There is a 6 mm oval fissural noncalcified nodule in the left lung base. There is a 4 mm noncalcified node medial left lower lobe adjacent to the aorta. There is a subpleural 4 mm right upper lobe noncalcified nodule. 3 mm noncalcified left upper lobe nodule series 3 image 14. There is a 3 mm oval fissural nodule right lung image 29. 7 x 4 mm noncalcified oval nodule right lower lobe. No significant effusion. No pneumothorax. Heart: No abnormality noted. Mediastinum: No abnormality noted. Thyroid: No abnormality noted. ABDOMEN: Liver: The liver is enlarged measuring 19.4 cm long. Hypodensity noted typical of fatty replacement. Smooth cortical contour. No mass or ductal dilation. Benign-appearing calcification in the left hepatic lobe. Gallbladder and bile ducts: No calcified stones or surrounding fluid. No ductal dilation. Pancreas: No pancreatic mass, calcification, inflammation or ductal dilation noted. Spleen: No significant abnormality noted. Adrenals: No significant abnormality noted. Kidneys and ureters: Simple right renal cyst/s. No simple cyst follow-up necessary. Left kidney appears normal. No renal stone, hydronephrosis or perinephric fluid. Mild cortical scarring left kidney. No stones or hydronephrosis. Stomach and bowel: Moderate amounts of stool in the colon and diffuse diverticulosis. Small amounts of fluid noted in the right colon. No obstruction. PELVIS: Appendix: No findings to suggest acute appendicitis. Bladder: Appears normal for the degree of filling. No stones or inflammation. No large mass. Masses may not be detected in the absence of opacification. Reproductive: No significant abnormality noted. CHEST, ABDOMEN and PELVIS: Intraperitoneal space: No free air. No significant fluid collection. Retroperitoneal space: No abnormality noted. No fluid collection. Bones/joints: No acute changes. Soft tissues: Right lower lateral abdominal wall thinning noted with a possible fat-containing hernia. Vasculature: There is moderate to marked atherosclerosis of the coronary arteries. Scattered atherosclerotic calcification throughout the thoracoabdominal aorta. No aneurysm. Lymph nodes: No enlarged nodes. IMPRESSION: 1. Extensive colonic diverticulosis without diverticulitis. 2. There are multiple small groundglass infiltrates mostly in the upper lobes with a small focus in the superior segment of the right lower lobe. There is no nonspecific densities likely reflecting infectious pneumonitis. Neoplasm and pulmonary infarcts thought less likely. 3. There are scattered nonspecific noncalcified micronodules. Fleischner Society Guidelines for low-risk patients recommend, follow-up chest CT at 3-6 months. If unchanged consider an additional follow-up CT at 18-24 months. For high-risk patients (smoking history or other known risk factors) initial follow-up chest CT at 3-6 months and if unchanged, 18-24 months. 4. Large fatty liver. No ductal dilatation. 5. Mild scarring of the left kidney. 6. Ending of the right lower lateral abdominal wall without clear hernia. ACT 112: N/A Electronically signed by Soledad Aguilar 08-26-2024 11:[address] 08/26/24 10:08 EXAM: CT Chest Abdomen and Pelvis Without Intravenous Contrast INDICATION: Chest pain, shortness of breath, abdominal pain and vomiting. TECHNIQUE: Axial computed tomography images of the chest, abdomen and pelvis without intravenous contrast. Sagittal and coronal reformatted images were created and reviewed. This CT exam was performed using one or more of the following dose reduction techniques: automated exposure control, adjustment of the mA and/or kV according to patient size, and/or use of iterative reconstruction technique. COMPARISON: No relevant prior studies available. FINDINGS: Limitations: None. CHEST: Lungs and pleural spaces: Small patchy groundglass infiltrates noted in both upper lobes. Very small groundglass opacity noted in the superior segment of the right lower lobe. No confluent consolidation. There is a 6 mm oval fissural noncalcified nodule in the left lung base. There is a 4 mm noncalcified node medial left lower lobe adjacent to the aorta. There is a subpleural 4 mm right upper lobe noncalcified nodule. 3 mm noncalcified left upper lobe nodule series 3 image 14. There is a 3 mm oval fissural nodule right lung image 29. 7 x 4 mm noncalcified oval nodule right lower lobe. No significant effusion. No pneumothorax. Heart: No abnormality noted. Mediastinum: No abnormality noted. Thyroid: No abnormality noted. ABDOMEN: Liver: The liver is enlarged measuring 19.4 cm long. Hypodensity noted typical of fatty replacement. Smooth cortical contour. No mass or ductal dilation. Benign-appearing calcification in the left hepatic lobe. Gallbladder and bile ducts: No calcified stones or surrounding fluid. No ductal dilation. Pancreas: No pancreatic mass, calcification, inflammation or ductal dilation noted. Spleen: No significant abnormality noted. Adrenals: No significant abnormality noted. Kidneys and ureters: Simple right renal cyst/s. No simple cyst follow-up necessary. Left kidney appears normal. No renal stone, hydronephrosis or perinephric fluid. Mild cortical scarring left kidney. No stones or hydronephrosis. Stomach and bowel: Moderate amounts of stool in the colon and diffuse diverticulosis. Small amounts of fluid noted in the right colon. No obstruction. PELVIS: Appendix: No findings to suggest acute appendicitis. Bladder: Appears normal for the degree of filling. No stones or inflammation. No large mass. Masses may not be detected in the absence of opacification. Reproductive: No significant abnormality noted. CHEST, ABDOMEN and PELVIS: Intraperitoneal space: No free air. No significant fluid collection. Retroperitoneal space: No abnormality noted. No fluid collection. Bones/joints: No acute changes. Soft tissues: Right lower lateral abdominal wall thinning noted with a possible fat-containing hernia. Vasculature: There is moderate to marked atherosclerosis of the coronary arteries. Scattered atherosclerotic calcification throughout the thoracoabdominal aorta. No aneurysm. Lymph nodes: No enlarged nodes.
[2024-08-27] MEDS: cefTRIAXone SODIUM 2,000 MG/50 ML BAG IV SCH (13:43)
--- NOTE | 2024-08-27 22:48 | Hospitalist Progress Note ---
Date of Service August 27, 2024 Assessment & Plan (1) Acute UTI (urinary tract infection): (2) Exocrine pancreatic insufficiency: (3) Delayed gastric emptying: (4) Bradycardia: Plan The patient is a 69-year-old female with a past medical history including bradycardia, delayed gastric emptying, exocrine pancreatic insufficiency, hypertension, GERD, COPD and dermatitis. She presents to the emergency department with symptoms that began after taking first dosages of Creon and sertraline last evening. She was reportedly on the list for delayed gastric emptying and exocrine pancreatic insufficiency, and since that time has had increased abdominal discomfort. Noticed that her urine has red tinge to it this morning. She follows with Dr. Steiner, cardiology from [place], for bradycardia, reports her heart rate is usually in the 40s. She has had decreased oral intake over the past few days due to GI issues. Urinalysis in the emergency department significant for urinary tract infection. In emergency department she received normal saline 1 L, Zofran 4 mg IV, Tylenol 1 g IV, and ceftriaxone 2 g IV. Urinary tract infection- Patient reports having had 2 recent urinary tract infections Follow urine culture and sensitivity Continue empiric ceftriaxone 2 g IV every 24 hours begun in the ED Patient no longer appears dehydrated. GI symptoms/delayed gastric emptying/exocrine pancreatic insufficiency- Would hold sertraline and Creon during admission Her symptoms likely began with the institution of both these medications with first dosing last evening She likely would be okay with Creon by starting 1 tablet with 1 meal daily, gradually increasing. She tends to be very sensitive to medications. will hold above medications for that reason. Continue pantoprazole Continue dicyclomine as needed Bradycardia/hypertension Patient has been following with Dr. Steiner, cardiology in [place], whom she has seen recently She has a follow-up pending with him. Will admit her to PCU for heart monitoring in the interim. Continue amlodipine with hold parameters Pulmonary micronodules- [place] to be nonacute by radiology These can be followed up in outpatient setting Admission and Anticipated Discharge Date Admission Date: August 26, 2024 Subjective Patient reports no new symptoms. Continues to have burning sensation in her skin. Review of Systems Review of Systems: All systems reviewed & are unremarkable except as noted in HPI & below Physical Exam Constitutional: WD/WN, vitals as above Neck: trachea midline, no thyromegaly Respiratory: normal respiratory effort, lungs clear to auscultation Cardiovascular: RRR, no murmur, no edema Results & Data Results & Data Vital Signs (Past 12 Hours) Vital Signs Temp Pulse Pulse Resp BP BP Pulse Ox 08/27/24 20:12 36 C L 48 L 18 150/85 H 94 08/27/24 16:00 36.6 C 87 16 128/74 96 08/27/24 15:09 60 08/27/24 11:00 36.6 C 71 18 120/80 97 O2 Del Method 08/27/24 20:12 Room Air 08/27/24 16:00 Room Air 08/27/24 15:09 08/27/24 11:00 Room Air PG Care Time/CCT Total # of Minutes Spent Total Time Spent with Patient: Total time spent is greater than 50% in coordination of care (as documented) at patient's floor/unit and/or counseling patient: Coding Level of Care Code 20590 SUB INP/OBS CARE 3/50MIN Diagnoses Acute UTI (urinary tract infection) N39.0 Exocrine pancreatic insufficiency K86.81 Delayed gastric emptying K30 Bradycardia R00.1 Time Spent (min) 50 Comment extended discussion with family
[2024-08-28 06:48] LABS: Hematocrit (blood only) 42.3 % (37.0-47.0); Hemoglobin 13.8 g/dl (12.0-16.0); Immature Granulocytes # (auto) 0.02 K/uL (0.01-0.20); Immature Granulocytes % (auto) 0.3 %; Mean Corpuscular Hemoglobin 28.6 pg (25.0-34.0); Mean Corpuscular Volume 87.8 fL (80.0-100.0); Platelet Count 209 K/uL (130-400); RDW Standard Deviation 45.1 fL (36.4-46.3); Red Blood Count 4.82 M/uL (4.20-5.40); White Blood Count 6.37 K/ul (4.8-10.8)
[2024-08-28 07:12] LABS: Alanine Aminotransferase 24.0 U/L (7-52); Albumin Globulin Ratio 1.4 (0.9-2); Albumin Level 4.0 gm/dl (3.4-5.0); Alkaline Phosphatase 61.0 U/L (34-104); Anion Gap 7.0 (3-11); Bilirubin,Total 1.1 mg/dl (0.2-1.0); Blood Urea Nitrogen 9.0 mg/dl (6-23); Calcium 9.7 mg/dl (8.6-10.3); Carbon Dioxide 27.0 mmol/L (21-32); Chloride 109.0 mmol/L (98-107); Creatinine Clr Calc Pharmacy 66.8 ml/min; Globulin 2.9 gm/dl (2.5-4.0); Glucose 89.0 mg/dl (70-99(Fasting)); Magnesium 2.0 mg/dl (1.7-2.4); Potassium 4.3 mmol/L (3.5-5.1); Sodium 143.0 mmol/L (136-145); Total Protein 6.9 gm/dl (6.0-8.3)
[2024-08-28 08:17] VITALS: RESP 18; TEMP 97.9
--- NOTE | 2024-08-28 10:15 | Electrocardiogram Report ---
Test Reason : Blood Pressure : */* mmHG Vent. Rate : 47 BPM Atrial Rate : 47 BPM P-R Int : 154 ms QRS Dur : 82 ms QT Int : 474 ms P-R-T Axes : 92 15 60 degrees QTcB Int : 419 ms Sinus bradycardia Otherwise normal ECG When compared with ECG of 26-Jul-2024 10:18, Nonspecific T wave abnormality no longer evident in Inferior leads Nonspecific T wave abnormality no longer evident in Anterolateral leads QT has lengthened Confirmed by Mac Beatty ([id number]) on 08/28/2024 10:15:23 AM Referred By: REFERRED SELF Confirmed By: Mac Beatty
[2024-08-28 11:54] VITALS: O2SAT 96
[2024-08-28 13:43] VITALS: BP 128/74
[2024-08-28 14:07] VITALS: PULSE 52
--- NOTE | 2024-08-28 19:01 | Discharge Summary ---
Discharge Summary Date of Service August 28, 2024 Principal Dx & Hospital Course #1 = Principal Diagnosis (1) Acute UTI (urinary tract infection): (2) Exocrine pancreatic insufficiency: (3) Delayed gastric emptying: (4) Bradycardia: Plan The patient is a 69-year-old female with a past medical history including bradycardia, delayed gastric emptying, exocrine pancreatic insufficiency, hypertension, GERD, COPD and dermatitis. She presents to the emergency department with symptoms that began after taking first dosages of Creon and sertraline last evening. She was reportedly on the list for delayed gastric emptying and exocrine pancreatic insufficiency, and since that time has had increased abdominal discomfort. Noticed that her urine has red tinge to it this morning. She follows with Dr. Steiner, cardiology from [place], for bradycardia, reports her heart rate is usually in the 40s. She has had decreased oral intake over the past few days due to GI issues. Urinalysis in the emergency department significant for urinary tract infection. In emergency department she received normal saline 1 L, Zofran 4 mg IV, Tylenol 1 g IV, and ceftriaxone 2 g IV. Urinary tract infection- Patient reports having had 2 recent urinary tract infections Follow urine culture and sensitivity Completed 3 doses empiric ceftriaxone 2 g IV every 24 hours Patient no longer appears dehydrated. GI symptoms/delayed gastric emptying/exocrine pancreatic insufficiency- Would hold sertraline and Creon during admission Her symptoms likely began with the institution of both these medications with first dosing last evening She likely would be okay with Creon by starting 1 tablet with 1 meal daily, gradually increasing. She tends to be very sensitive to medications. will hold above medications for that reason and deferred to PCP when to restart creon. Continue pantoprazole Continue dicyclomine as needed Bradycardia/hypertension Patient has been following with Dr. Steiner, cardiology in [place], whom she has seen recently She has a follow-up pending with him. Continue amlodipine Pulmonary micronodules- [place] to be nonacute by radiology These can be followed up in outpatient setting Admission HPI Per Admitting Provider The patient is a 69-year-old female with a past medical history including bradycardia, delayed gastric emptying, exocrine pancreatic insufficiency, hypertension, GERD, COPD and dermatitis. She presents to the emergency department with symptoms that began after taking first dosages of Creon and sertraline last evening. She was reportedly on the list for delayed gastric emptying and exocrine pancreatic insufficiency, and since that time has had increased abdominal discomfort. Noticed that her urine has red tinge to it this morning. She follows with Dr. Steiner, cardiology from [place], for bradycardia, reports her heart rate is usually in the 40s. She has had decreased oral intake over the past few days due to GI issues. Urinalysis in the emergency department significant for urinary tract infection. In emergency department she received normal saline 1 L, Zofran 4 mg IV, Tylenol 1 g IV, and ceftriaxone 2 g IV. Discharge Exam Constitutional WD/WN, vitals as above Neck trachea midline, no thyromegaly Respiratory normal respiratory effort, lungs clear to auscultation Cardiovascular RRR, no murmur, no edema Discharge Plan Discharge Items Patient Disposition: Home - Self-Care Reason For Visit: BRADYCARDIA, UTI Discharge Diagnosis: bradycardia Condition on Discharge: Fair Activity: Resume your previous activity Non-emergency contact: Primary Care Provider Call non-emergency contact if: you have any medication questions Follow-up/Referrals: Mac Birmingham MD [Primary Care Provider] - (Pt states she will call to schedule her follow up with pcp. She has a number of appts coming up, including a sinus surgery this week and would need to check her calendar to see her availablility ) Diet: Heart Healthy and Lactose Intolerant Addtl Attending Provider Instructions: Recommend followup with GI and PCP in 1-2 weeks to discuss resuming creon and further investigating your pain. Pending Studies at Discharge: No Stand-Alone Forms: My [facility] [employer], Smoking Cessation Medications and DC Order Prescriptions: Continued amlodipine 5 mg tablet 0 mg PO QPM Patient Comments: Medication currently on hold per caregiver/spouse. olopatadine 0.2 % drops 1 drp ophthalmic (eye) DAILY PRN (Reason: Allergies) dicyclomine 10 mg capsule 10 mg PO BID PRN (Reason: Abdominal Pain) cholecalciferol (vitamin D3) 50 mcg (2,000 unit) capsule 50 mcg PO QAM epinephrine 0.3 mg/0.3 mL auto-injector 0.3 mg IM Q10M PRN (Reason: hives) Rx Instructions: for 2 doses Spiriva Respimat 1.25 mcg/actuation mist 2 puff inhalation QAM triamcinolone acetonide 0.1 % Cream 1 applic TOPICAL BID PRN (Reason: hives) pantoprazole 40 mg tablet,delayed release (DR/EC) 40 mg PO BID albuterol sulfate 90 mcg/actuation HFA aerosol inhaler 2 puff INHALATION QAM biotin 1 mg Capsule 1 mg PO DAILY Patient Comments: Medication currently on hold per caregiver/spouse. Neuro Renew 1 tab PO QAM Patient Comments: Medication currently on hold per caregiver/spouse. No Action amoxicillin-pot clavulanate 875-125 mg tablet 1 tab PO BID Qty: 14 0RF promethazine 25 mg Tablet 25 mg PO Q6H PRN (Reason: nausea and vomiting) Qty: 120 0RF Discharge Orders: Discharge Order (Routine); Ordered 08/28/24 Ordered By: Markos Carranza/Other Patient Handouts: Urinary Tract Infections in Women, Anatomy of the Digestive System, Understanding Bradycardia Admission Data Admit Date/Time: 08/26/24 14:35 Attending Provider: Markos Ocampo Admit Provider: Edwin Perry Primary Care Provider: Mac Birmingham Other Providers: Essence Claudio Jr Other Interventions: Discharge Summary Assessment (RN) Last Done: 08/28/24 13:41 Hospital Stay Data Consultations 08/26/24 13:44 ED Decision to Admit Stat 08/26/24 17:46 Consult Gastroenterology Routine Diagnostic Imagining Performed 08/26/24 09:54 CT Abd and Pelvis [CT abd pelvis wo con] Stat 08/26/24 10:08 CT chest without contrast [CT chest diagnostic wo con] Stat Pending Results Patient Have Any Pending Studies at Discharge: No Discharge Instructions Given to Patient (Per Discharging Provider) Recommend followup with GI and PCP in 1-2 weeks to discuss resuming creon and further investigating your pain. Total Time Total Time Spent Total Time Spent (In Minutes): 32 Coding Level of Care Code 66368 INP/OBS DISCH >30 MIN Diagnoses Acute UTI (urinary tract infection) N39.0 Exocrine pancreatic insufficiency K86.81 Delayed gastric emptying K30 Bradycardia R00.1
== END 2024-08-28 14:45 | disposition home or self-care (01) | DRG 690 ==
LOC: ED 07:56 → 2E 14:35 → SUATTDRO 14:35 → 2E 16:02

== ENCOUNTER 2024-08-31 09:20 | Observation (INO) ==
--- NOTE | 2024-08-31 09:40 | Emergency Department Note ---
Impression & Plan Stroke-like symptoms, Chest pain, Abdominal pain ED Provider Note NAME: SASHA POSEY AGE: 69 SEX: F : 1955 ARRIVES VIA: Walk-In INFORMANT: Patient, the patient's ED PROVIDER(S): Mac Manriquez DO CHIEF COMPLAINT: Strokelike symptoms HPI: The patient is a 69-year-old female who presented to the emergency department for strokelike symptoms. The patient has a history of chronic abdominal issues. She was seen in our facility for similar complaints over the last couple days. The patient was discharged to home. Today she started having worsening upper abdominal pain as well as lower abdominal pain. She also had nausea. She took Zofran and then her states that she started having symptoms of difficulty speaking. The patient also complained of a right sided headache. She complains of generalized weakness. She complains of chest pain as well. Her brought her to the emergency department by private vehicle. The patient was evaluated by the ambulance prior to arrival. She wanted to come to our facility but they did not want to bring her that far and could only take her to [facility]. That is when the patient decided to come by private vehicle. The significant other states that the speech issues began approximate 10 minutes prior to arrival. ROS: See above HPI for pertinent positives & negatives. A total of 10 systems reviewed and were otherwise negative. PAST MEDICAL HISTORY: See Below PAST SURGICAL HISTORY: See Below FAMILY HISTORY: See Below SOCIAL HISTORY: See Below HOME MEDICATIONS: See Below ALLERGIES: See Below VITALS: See Below PHYSICAL EXAMINATION: GENERAL: The patient is awake and alert. The patient is very anxious appearing. EYES: The conjunctivae are clear. The pupils are round and reactive. EARS, NOSE, MOUTH AND THROAT: The nose is without any evidence of any deformity. NECK: The neck is nontender and supple. RESPIRATORY: Normal respiratory effort is noted there is no evidence of wheezing rhonchi or rales CARDIOVASCULAR: Regular rate and rhythm noted there no murmurs rubs or gallops normal S1 normal S2. GASTROINTESTINAL: The abdomen is distended. There is diffuse tenderness to palpation but no specific guarding or rigidity. MUSCULOSKELETAL/EXTREMITIES: There is no evidence of gross deformity full range of motion is noted in the hips and shoulders. SKIN: There is no obvious evidence of any rash. There are no petechiae, pallor or cyanosis noted. NEUROLOGIC: The patient is awake and alert. Her speech appears to be not able to be comprehended but she does follow commands. Patellar tendon reflexes are 2+ bilaterally. MEDICAL DECISION MAKING: The patient is a 69-year-old female who presented to the emergency department for an evaluation of strokelike symptoms. The patient was coming to our facility for abdominal pain. She has been seen in our facility multiple times over the course of the last few days. The patient started having an episode where she could not speak well. It was unclear if this was related to his [employer] issue and given the acute onset of symptoms the patient was made a stroke alert. I discussed her condition with the telestroke neurologist. She has waxing and waning of symptoms and it would be difficult to ascertain if this is truly a patient who would benefit from TNK. I discussed this with the patient and her significant other. I do not feel I could recommend TNK at this time and the telestroke neurologist agrees. Further laboratory and radiographic studies were obtained. I discussed the patient's condition with her and her significant other. I discussed her condition with the on-call [facility] hospitalist. They have agreed to evaluate the patient in the emergency department for further management and disposition. Triage Nursing notes reviewed. Prior medical records reviewed Vital Signs: reviewed and remarkable for hypertension and bradycardia. Differential diagnosis: Infection, dehydration, metabolic abnormality, hypo/hyperglycemia, electrolyte disturbance, anemia, hypoxia, cardiac sources, intracerebral event, toxicologic, neurologic, as well as other pathologies. ER treatment provided: See below Diagnostics interpreted by me: ECG: EKG was obtained in the emergency department. My interpretation is sinus bradycardia 50 bpm. PVCs were noted. Nonspecific ST and T wave abnormalities are noted. This was compared to a tracing from August 26, 2024. The ectopy was new otherwise no changes were noted. Cardiac Monitoring: An order was placed for continuous cardiac monitoring. The monitor shows a rate of 48 bpm with sinus bradycardia. Laboratory studies: As stated above and show below. Imaging studies: See below. Radiographic imaging was reviewed by myself Consultation(s): I discussed the case with Dr. Richardson who is on for telestroke neurology at [facility]. The [facility] hospitalist group was notified about the patient. They will evaluate the patient in the emergency department. Past Med/Surg History Problem List (Updated 08/31/24 @ 13:21 by Mac Manriquez DO) Abdominal pain (Acute) Chest pain (Acute) Stroke-like symptoms (Acute) Urinary tract infection (Acute) Nausea and vomiting (Acute) Spastic colon (Acute) Abdominal cramping (Acute) Bradycardia Delayed gastric emptying Exocrine pancreatic insufficiency Acute UTI (urinary tract infection) (Acute) Generalized weakness (Acute) Encounter for pre-operative examination Dry mouth (Acute) Dysphagia Maxillary sinusitis Medical History Atherosclerotic heart disease follows w/ Dr Steiner, reason for plavix History of esophageal dilatation (07/2024) Raynauds syndrome History of COVID-19 (02/2024) no hosp; resolved Elevated pancreatic enzyme currently under surveillance GERD (gastroesophageal reflux disease) Gastroparesis eating small meals Fatty liver Neuropathy bilat feet Venous (peripheral) insufficiency occasional bilat edema, has not needed lasix in ~1 year Dysphagia improved since dilation Endometriosis hx Lung cancer (2023) no chemo or radiation Acid reflux COPD (chronic obstructive pulmonary disease) uses inhalers daily, follows w/ [facility] Surgical History History of bronchoscopy Hx of colonoscopy Hx of laparoscopy History of esophagogastroduodenoscopy (EGD) (07/2024) History of lobectomy of lung (04/2023) lung cancer, upper left lobe, [facility] H/O tubal ligation H/O hernia repair History of appendectomy Family History Mother Heart disease Hypertension Social History Smoking Status: Unknown if ever smoked Tobacco Type: Cigarettes Second Hand Exposure: No; Do You Dip or Chew Tobacco: No; Hx Alcohol Use: No Hx Substance Use: No Preferred Language: Ecuadorean Communication Ability: Effective Psychological Operations Specialist Required: No Beliefs That Will Affect Care: None marital status: Current Living Situation: Spouse current occupational status: retired Feels Safe at Home: Yes Gender Identity: Female Assistive Devices: Glasses Allergies Allergies Allergy/AdvReac Type Severity Reaction Status Date / Time aspirin Allergy Severe welts,turns Unverified 08/23/24 09:05 blue budesonide Allergy Unknown Palpitation Unverified 08/23/24 09:05 [From Evotec] s fluticasone furoate Allergy Unknown sob Unverified 08/23/24 09:05 [From [employer]] formoterol Allergy Unknown Palpitation Unverified 08/23/24 09:05 [From Evotec] s glycopyrrolate Allergy Unknown Palpitation Unverified 08/23/24 09:05 [From [employer]] s Iodinated Contrast Media Allergy Unknown welts Unverified 08/23/24 09:05 olodaterol Allergy Unknown Palpitation Unverified 08/23/24 09:05 [From Stiolto Respimat] s tiotropium Allergy Unknown Palpitation Unverified 08/23/24 09:57 [From [employer]iolto [employer]imat] s umeclidinium Allergy Unknown sob Unverified 08/23/24 09:57 [From [employer]] vilanterol Allergy Unknown sob Unverified 08/23/24 09:57 [From [employer]] Home Meds Home Medications Medication Instructions Recorded Confirmed amlodipine 5 mg tablet 0 mg PO QPM 06/20/24 08/31/24 cholecalciferol (vitamin D3) 50 50 mcg PO QAM 06/20/24 08/31/24 mcg (2,000 unit) capsule dicyclomine 10 mg capsule 10 mg PO BID PRN Abdominal Pain 06/20/24 08/31/24 epinephrine 0.3 mg/0.3 mL 0.3 mg IM Q10M PRN hives 06/20/24 08/31/24 injection, auto-injector furosemide 40 mg tablet (Lasix) 40 mg PO DAILY PRN Edema 06/20/24 08/31/24 olopatadine 0.2 % eye drops 1 drp ophthalmic (eye) DAILY PRN 06/20/24 08/31/24 Allergies potassium chloride 10 mEq 10 meq PO DAILY 06/20/24 08/31/24 tablet,extended release tiotropium bromide 1.25 2 puff inhalation QAM 06/20/24 08/31/24 mcg/actuation mist for inhalation (Spiriva Respimat) Neuro Renew 1 tab PO QAM 08/23/24 08/31/24 albuterol sulfate 90 mcg/actuation 2 puff inhalation QAM 08/23/24 08/31/24 aerosol inhaler biotin 1 mg capsule 1 mg PO DAILY 08/23/24 08/31/24 pantoprazole 40 mg tablet,delayed 40 mg PO BID 08/23/24 08/31/24 release triamcinolone acetonide 0.1 % 1 applic topical BID PRN hives 08/23/24 08/31/24 topical cream sertraline 50 mg tablet 25 mg PO HS 08/24/24 08/31/24 gceixu-pnloaqsz-xicxvhx 1 - 2 cap PO DIRECTED 08/26/24 08/31/24 36,000-114,000-180,000 unit capsule,delay rel (Creon) ondansetron 4 mg disintegrating 4 mg PO UD PRN nausea and vomiting 08/31/24 08/31/24 tablet Previous Rx's Medication Instructions Recorded amoxicillin 875 mg-potassium 1 tab PO BID #14 tabs 08/29/24 clavulanate 125 mg tablet Results & Data (ED) Vital Signs Vital Signs - 24 hr 08/31/24 09:21 08/31/24 09:21 08/31/24 09:21 Pulse Rate 49 L Pulse Rate [Apical] 79 Pulse Rhythm [Apical] Pulse Strength [Apical] Respiratory Rate 14 18 Respiratory Effort / Characteristics Respiratory Depth Respiratory Pattern Blood Pressure 137/81 Blood Pressure [Right Arm] 156/110 H Blood Pressure Mean 99 Blood Pressure Mean [Right Arm] 125 Blood Pressure Position [Right Arm] Sitting Pulse Oximetry 97 97 98 Oxygen Delivery Method Room Air Room Air Room Air Sepsis New/Unexplained Change in Mental Status Yes Sepsis Action Taken by Nursing No Action Required 08/31/24 09:56 08/31/24 10:04 08/31/24 10:16 Pulse Rate 49 L Pulse Rate [Apical] 60 66 Pulse Rhythm [Apical] Pulse Strength [Apical] Respiratory Rate 19 18 Respiratory Effort / Characteristics Non-Labored Spontaneous Respiratory Depth Normal Respiratory Pattern Regular Blood Pressure Blood Pressure [Right Arm] 177/87 H 177/87 H Blood Pressure Mean Blood Pressure Mean [Right Arm] 117 117 Blood Pressure Position [Right Arm] Pulse Oximetry 98 98 Oxygen Delivery Method Room Air Room Air Sepsis New/Unexplained Change in Mental Status Sepsis Action Taken by Nursing 08/31/24 10:19 08/31/24 10:34 08/31/24 10:49 Pulse Rate Pulse Rate [Apical] 55 L 49 L 48 L Pulse Rhythm [Apical] Pulse Strength [Apical] Respiratory Rate 17 16 17 Respiratory Effort / Characteristics Respiratory Depth Respiratory Pattern Blood Pressure Blood Pressure [Right Arm] 177/90 H 177/90 H 194/98 H Blood Pressure Mean Blood Pressure Mean [Right Arm] 119 119 130 Blood Pressure Position [Right Arm] Pulse Oximetry 98 97 97 Oxygen Delivery Method Room Air Room Air Room Air Sepsis New/Unexplained Change in Mental Status Sepsis Action Taken by Nursing 08/31/24 11:04 08/31/24 11:19 08/31/24 11:28 Pulse Rate Pulse Rate [Apical] 49 L 50 L 48 L Pulse Rhythm [Apical] Regular Regular Regular Pulse Strength [Apical] Normal Normal Normal Respiratory Rate 14 17 12 Respiratory Effort / Characteristics Non-Labored Spontaneous Non-Labored Spontaneous Non-Labored Spontaneous Respiratory Depth Normal Normal Normal Respiratory Pattern Regular Regular Regular Blood Pressure Blood Pressure [Right Arm] 166/92 H 162/96 H 162/96 H Blood Pressure Mean Blood Pressure Mean [Right Arm] 116 118 118 Blood Pressure Position [Right Arm] Lying Lying Lying Pulse Oximetry 95 96 95 Oxygen Delivery Method Room Air Room Air Room Air Sepsis New/Unexplained Change in Mental Status Sepsis Action Taken by Nursing 08/31/24 12:00 Pulse Rate Pulse Rate [Apical] 48 L Pulse Rhythm [Apical] Regular Pulse Strength [Apical] Normal Respiratory Rate 22 Respiratory Effort / Characteristics Non-Labored Spontaneous Respiratory Depth Normal Respiratory Pattern Regular Blood Pressure Blood Pressure [Right Arm] 141/81 H Blood Pressure Mean Blood Pressure Mean [Right Arm] 101 Blood Pressure Position [Right Arm] Lying Pulse Oximetry 98 Oxygen Delivery Method Room Air Sepsis New/Unexplained Change in Mental Status Sepsis Action Taken by Care Home Medications Current Medication List: was personally reviewed by me Laboratory Data Attestation: I reviewed the patient's lab results. 08/31/24 09:35 08/31/24 09:35 Lab Results 08/31/24 08/31/24 08/31/24 Range/Units 09:35 09:59 11:49 WBC 9.27 (4.8-10.8) K/ul RBC 5.26 (4.20-5.40) M/uL Hgb 15.1 (12.0-16.0) g/dl Hct 44.6 (37.0-47.0) % MCV 84.8 (80.0-100.0) fL MCH 28.7 (25.0-34.0) pg MCHC 33.9 (32.0-36.0) g/dL RDW Std Deviation 44.1 (36.4-46.3) fL RDW Coeff of Armando 14.5 (11.5-14.5) % Plt Count 221 (130-400) K/uL MPV 10.9 (9.4-12.4) fL Immature Gran % (Auto) 0.4 % Neut % (Auto) 69.4 % Lymph % (Auto) 19.5 % [place] % (Auto) 7.7 % Eos % (Auto) 2.2 % Baso % (Auto) 0.8 % Neut # (Auto) 6.44 (1.40-6.50) K/uL Lymph # (Auto) 1.81 (1.20-3.40) K/uL [place] # (Auto) 0.71 H (0.11-0.59) K/uL Eos # (Auto) 0.20 (0.00-0.50) K/uL Baso # (Auto) 0.07 (0.00-0.20) K/uL Immature Gran # (Auto) 0.04 (0.01-0.20) K/uL ESR 25 (0-30) mm/hr PT 11.0 (9.0-12.0) Seconds INR 1.0 (0.9-1.1) APTT 31 (21-31) Seconds PTT Ratio 1.2 Sodium 141 (136-145) mmol/L Potassium 3.9 (3.5-5.1) mmol/L Chloride 108 H (98-107) mmol/L Carbon Dioxide 23 (21-32) mmol/L Anion Gap 10 (3-11) BUN 8 (6-23) mg/dl Creatinine 1.01 (0.6-1.2) mg/dl Est Cr Clr Drug Dosing 60.1 ml/min eGFR 59.52 BUN/Creatinine Ratio 7.9 L (10-20) Glucose 104 H (70-99(Fasting)) mg/dl POC Glucose 95 (70-99) mg/dl Lactate 0.8 (0.4-2.0) mmol/L Calcium 10.3 (8.6-10.3) mg/dl Magnesium 1.9 (1.7-2.4) mg/dl Total Bilirubin 1.5 H (0.2-1.0) mg/dl AST 20 (13-39) U/L ALT 24 (7-52) U/L Alkaline Phosphatase 74 (34-104) U/L Troponin I High Sens 5.9 (0-14) pg/ml C-Reactive Protein < 0.50 (0-0.5) mg/dl Total Protein 7.9 (6.0-8.3) gm/dl Albumin 4.5 (3.4-5.0) gm/dl Globulin 3.4 (2.5-4.0) gm/dl Albumin/Globulin Ratio 1.3 (0.9-2) Triglycerides 185 H (0-150) mg/dl Cholesterol 167 (0-200) mg/dl LDL Cholesterol, Calc 92 mg/dl VLDL Cholesterol, Calc 37 H (0-30) mg/dl HDL Cholesterol 38 mg/dl Cholesterol/HDL Ratio 4.4 (0-5) TSH 3.688 (0.300-4.500) uIu/ml PTH Intact (12.0-88.0) pg/ml Urine Color Urine Appearance (Clear) Urine pH (4.5-7.5) Ur Specific Edward (1.000-1.030) Urine Protein (Negative) Urine Glucose (UA) (Negative) Urine Ketones (Negative) Urine Blood (Negative) Urine Nitrite (Negative) Urine Bilirubin (Negative) Urine Urobilinogen (Negative) Ur Leukocyte Esterase (Negative) Urine Comment 08/31/24 08/31/24 Range/Units 11:51 11:54 WBC (4.8-10.8) K/ul RBC (4.20-5.40) M/uL Hgb (12.0-16.0) g/dl Hct (37.0-47.0) % MCV (80.0-100.0) fL MCH (25.0-34.0) pg MCHC (32.0-36.0) g/dL RDW Std Deviation (36.4-46.3) fL RDW Coeff of Armando (11.5-14.5) % Plt Count (130-400) K/uL MPV (9.4-12.4) fL Immature Gran % (Auto) % Neut % (Auto) % Lymph % (Auto) % [place] % (Auto) % Eos % (Auto) % Baso % (Auto) % Neut # (Auto) (1.40-6.50) K/uL Lymph # (Auto) (1.20-3.40) K/uL [place] # (Auto) (0.11-0.59) K/uL Eos # (Auto) (0.00-0.50) K/uL Baso # (Auto) (0.00-0.20) K/uL Immature Gran # (Auto) (0.01-0.20) K/uL ESR (0-30) mm/hr PT (9.0-12.0) Seconds INR (0.9-1.1) APTT (21-31) Seconds PTT Ratio Sodium (136-145) mmol/L Potassium (3.5-5.1) mmol/L Chloride (98-107) mmol/L Carbon Dioxide (21-32) mmol/L Anion Gap (3-11) BUN (6-23) mg/dl Creatinine (0.6-1.2) mg/dl Est Cr Clr Drug Dosing ml/min eGFR BUN/Creatinine Ratio (10-20) Glucose (70-99(Fasting)) mg/dl POC Glucose (70-99) mg/dl Lactate (0.4-2.0) mmol/L Calcium (8.6-10.3) mg/dl Magnesium (1.7-2.4) mg/dl Total Bilirubin (0.2-1.0) mg/dl AST (13-39) U/L ALT (7-52) U/L Alkaline Phosphatase (34-104) U/L Troponin I High Sens (0-14) pg/ml C-Reactive Protein (0-0.5) mg/dl Total Protein (6.0-8.3) gm/dl Albumin (3.4-5.0) gm/dl Globulin (2.5-4.0) gm/dl Albumin/Globulin Ratio (0.9-2) Triglycerides (0-150) mg/dl Cholesterol (0-200) mg/dl LDL Cholesterol, Calc mg/dl VLDL Cholesterol, Calc (0-30) mg/dl HDL Cholesterol mg/dl Cholesterol/HDL Ratio (0-5) TSH (0.300-4.500) uIu/ml PTH Intact 46.8 (12.0-88.0) pg/ml Urine Color Yellow Urine Appearance Clear (Clear) Urine pH 7.0 (4.5-7.5) Ur Specific Edward 1.034 H (1.000-1.030) Urine Protein Negative (Negative) Urine Glucose (UA) Negative (Negative) Urine Ketones Negative (Negative) Urine Blood Negative (Negative) Urine Nitrite Negative (Negative) Urine Bilirubin Negative (Negative) Urine Urobilinogen Negative (Negative) Ur Leukocyte Esterase Negative (Negative) Urine Comment Administered Medications Discontinued Medications Diphenhydramine HCl (Diphenhydramine 50 Mg/Ml Vial) 50 mg IV ONE ONE Stop: 08/31/24 09:36 Last Admin: 08/31/24 09:50 Dose: 50 mg Documented By: JUANJO Ioversol (Optiray 320 125ml) 112 ml IV ONCE ONE Stop: 08/31/24 10:04 Last Admin: 08/31/24 10:03 Dose: 112 ml Documented By: CLEMENTE Methylprednisolone (Methylprednisolone 125 Mg/2 Ml Vial) 40 mg IV NOW ONE Stop: 08/31/24 09:36 Last Admin: 08/31/24 09:51 Dose: 40 mg Documented By: JUANJO Imaging Data Attestation: I personally reviewed and interpreted this imaging study as follows: My Impression: CT of the brain was obtained in the emergency department. My interpretation is no intracranial hemorrhage or mass effect, final report below. CT of the abdomen and pelvis was obtained in the emergency department. My interpretation is no free air or signs of bowel obstruction, final report below. Radiologist's Impression: Abdomen/Pelvis CT 08/31/24 09:[address] WITH IV CONTRAST CT DOSE: 2423.21mGy*cm HISTORY: abd pain and CP and stroke like symptoms TECHNIQUE: Multiaxial CT images of the abdomen and pelvis were performed following the IV administration of 112 cc of Optiray, A dose lowering technique was utilized adhering to the principles of ALARA. COMPARISON STUDY: 08/26/2024 FINDINGS: No significant interval changes have occurred. Bilateral pulmonary parenchymal scarring and nodularity is once again noted and will be addressed on the dedicated chest CT performed separately. Diffuse hepatic steatosis was again identified. There is a 13.5 mm hypoattenuating lesion in the right lobe of the liver which can be seen in retrospect on the prior study. It isn't completely evaluated on today's examination. Statistically it is either a cyst or hemangioma. Diffuse fatty infiltration of the liver is redemonstrated. Coarse calcification in the left lobe is redemonstrated. No gallbladder or bile duct pathology. Small right renal cysts. No obstructive uropathy. No adrenal, pancreatic, or splenic lesion identified. No bowel obstruction or free air. No ascites. No aortic aneurysm or periaortic adenopathy. In the pelvis, there is a small fat-containing right sided ventral hernia which protrudes just lateral to the margin of the psoas muscle. The appendix is not identified. No fluid in the cul-de-sac. There is multiple sigmoid diverticula with no definite evidence of diverticulitis. The uterus is not enlarged. The unopacified urinary bladder is grossly negative. There is pronounced degenerative disc disease at L4-5 and L5-S1. IMPRESSION: Stable exam with no acute process identified. 13.5 mm hypoattenuating lesion in the right lobe of the liver incompletely characterized. Recommend a ultrasound for correlation. ACT 112: Negative or not required by law. The above report was generated using voice recognition software. It may contain grammatical, syntax or spelling errors. Electronically signed by: Casandra Vivar M.D. 08/31/2024 10:39 AM Chest CTA 08/31/24 09:34 CT angio chest PE protocol CT DOSE: 2423.21 mGy.cm HISTORY: abd pain and CP and stroke like symptoms. TECHNIQUE: Multiple CTA images of the chest were obtained after the intravenous administration of 112 ml Optiray. Coronal and sagittal MIPS were obtained from the axial data set and were submitted for review. All measurements were obtained according to NASCET criteria. A dose lowering technique was utilized adhering to the principles of ALARA. COMPARISON STUDY: 08/26/2024 FINDINGS: There is motion artifact due to the difficulty breath holding. Stable left upper lobe resection. There is no lobar consolidation or pleural effusion. No pneumothorax. There are a few stable groundglass pulmonary opacities and pulmonary nodules. Largest groundglass opacity is at the left lower lobe measuring 2.3 cm series 5 image 290 and largest on the right is at the right lung apex measuring 1.7 cm, stable. Largest pulmonary nodule is lateral right lower lobe measuring 7 mm, stable. No enlarged adenopathy. No pericardial effusion. There are coronary artery and aortic calcifications. No thoracic aortic dissection or aneurysm. No pulmonary embolism. No acute osseous findings. IMPRESSION: 1. No pulmonary embolism. 2. Stable groundglass pulmonary opacities and nodules. Follow-up chest CT recommended in 6 months. 3. Otherwise as described. ACT 112: Negative or not required by law. The above report was generated using voice recognition software. It may contain grammatical, syntax or spelling errors. Electronically signed by: Solis Plasencia M.D. 08/31/2024 10:[address] 08/31/24 09:34 CT head/brain wo con CLINICAL HISTORY: neuro deficit, acute stroke suspected. TECHNIQUE: Multiple axial CT images of the head were obtained without contrast. A dose lowering technique was utilized adhering to the principles of ALARA. CT DOSE: 630.51 mGy.cm COMPARISON: None FINDINGS: There is no intra-axial or extra-axial fluid collection, hemorrhage, or mass. Ventricles and sulci are age-appropriate with no midline shift. No focal attenuation abnormality identified. Bone windows are negative. There is bilateral maxillary sinusitis with near complete sinus opacification. IMPRESSION: No acute intracranial process. Bilateral maxillary sinus opacification. ACT 112: Negative or not required by law. The above report was generated using voice recognition software. It may contain grammatical, syntax or spelling errors. Electronically signed by: Casandra Vivar M.D. 08/31/2024 9:58 AM Head CTA 08/31/24 09:34 CT ANGIOGRAM OF THE BRAIN; CT ANGIOGRAM OF THE NECK CLINICAL HISTORY: Neurological deficit. Stroke like symptoms. COMPARISON STUDY: Unenhanced CT of the brain performed concurrently on 08/31/2024. TECHNIQUE: Following the IV administration of 112 of Optiray 320, CT angiogram of the head and neck was performed from the aortic arch to the vertex. Images are reviewed in the axial, sagittal, and coronal planes. 3-D MIPS images are created and assessed. IV contrast was administered without complication. All measurements were calculated based on NASCET criteria. A dose lowering technique was utilized adhering to the principles of ALARA. FINDINGS: Brain parenchyma: There is age-related involutional change noting minimal microangiopathic disease. There is no evidence of hemorrhage or mass effect noting angiographic phase technique. There is no evidence of enhancing mass lesion on the angiogram phase images. The ventricles, sulci, and cisterns are prominent secondary to involutional change. Martines-white matter differentiation is preserved. No extra-axial fluid collection is seen. Thoracic aorta: There is mild atherosclerotic calcification of the thoracic aorta. Visualized portions of the thoracic aorta are normal in caliber. The aortic arch demonstrates bovine variant anatomy. Right carotid arterial system: The right common carotid artery is widely patent, as are the right internal and external carotid arteries. Calcified plaque is noted in the carotid bulb. Left carotid arterial system: The left common carotid artery is widely patent, as are the left internal and external carotid arteries. Vertebral arteries: Widely patent bilaterally and codominant. Subclavian arteries: Widely patent bilaterally. Intracranial vasculature: There is mild atherosclerotic calcification of the cavernous carotid and vertebral arteries. The internal carotid arteries are patent at the skull base, as are the anterior and middle cerebral arteries bilaterally. The vertebrobasilar system and posterior cerebral arteries are widely patent. The vertebral arteries are codominant. There is no aneurysm, high-grade stenosis, or focal vessel cut off seen throughout the intracranial circulation. Jugular veins: Patent bilaterally. Dural sinuses: Patent. Lung apices: Probable glass opacities are seen in the upper lobes bilaterally. The largest groundglass opacity is seen in the right apex on image #123 and measures 1.9 cm. Trace pleural fluid is noted on the left. A 6 mm pulmonary nodule is seen in the right upper lobe on image #75. Soft tissues: The visualized pharyngeal soft tissues are normal in appearance noting angiographic phase technique. The oropharyngeal airway appears widely patent. The thyroid gland is heterogeneous. The salivary glands are normal in appearance. No cervical lymphadenopathy is seen. Skeletal structures: The skeletal structures are osteopenic. The calvarium appears intact. The cervical spine is maintained noting mild multilevel spondylosis. Orbits: The bony orbits are intact. Orbital contents are normal as visualized. Sinuses and mastoids: There is complete opacification of the maxillary antra. Thickening and sclerosis of the sinus colunga indicates chronicity. The remaining paranasal sinuses are clear. There is a small right mastoid effusion. The left mastoid air cells are well pneumatized. IMPRESSION: 1. There is no evidence of hemorrhage or mass effect noting angiographic phase technique. 2. Unremarkable CT angiogram of the brain. 3. Unremarkable CT angiogram of the neck. 4. There is a 6 mm right apical pulmonary nodule, as well as ground glass opacities in the upper lobes. These may be on an infectious/inflammatory basis. A follow-up chest CT in 3-4 months time is recommended for reevaluation. 5. Bilateral maxillary sinus disease. ACT 112: Positive. There are findings on this exam that require communication between the performing entity and the patient following Patient Test Result Information Act ([place] Act 112) guidelines. Electronically signed by: Fabricio Longo M.D. 08/31/2024 10:48 AM Neck CTA 08/31/24 09:34 CT ANGIOGRAM OF THE BRAIN; CT ANGIOGRAM OF THE NECK CLINICAL HISTORY: Neurological deficit. Stroke like symptoms. COMPARISON STUDY: Unenhanced CT of the brain performed concurrently on 08/31/2024. TECHNIQUE: Following the IV administration of 112 of Optiray 320, CT angiogram of the head and neck was performed from the aortic arch to the vertex. Images are reviewed in the axial, sagittal, and coronal planes. 3-D MIPS images are created and assessed. IV contrast was administered without complication. All measurements were calculated based on NASCET criteria. A dose lowering technique was utilized adhering to the principles of ALARA. FINDINGS: Brain parenchyma: There is age-related involutional change noting minimal microangiopathic disease. There is no evidence of hemorrhage or mass effect noting angiographic phase technique. There is no evidence of enhancing mass lesion on the angiogram phase images. The ventricles, sulci, and cisterns are prominent secondary to involutional change. Martines-white matter differentiation is preserved. No extra-axial fluid collection is seen. Thoracic aorta: There is mild atherosclerotic calcification of the thoracic aorta. Visualized portions of the thoracic aorta are normal in caliber. The aortic arch demonstrates bovine variant anatomy. Right carotid arterial system: The right common carotid artery is widely patent, as are the right internal and external carotid arteries. Calcified plaque is noted in the carotid bulb. Left carotid arterial system: The left common carotid artery is widely patent, as are the left internal and external carotid arteries. Vertebral arteries: Widely patent bilaterally and codominant. Subclavian arteries: Widely patent bilaterally. Intracranial vasculature: There is mild atherosclerotic calcification of the cavernous carotid and vertebral arteries. The internal carotid arteries are patent at the skull base, as are the anterior and middle cerebral arteries bilaterally. The vertebrobasilar system and posterior cerebral arteries are widely patent. The vertebral arteries are codominant. There is no aneurysm, high-grade stenosis, or focal vessel cut off seen throughout the intracranial circulation. Jugular veins: Patent bilaterally. Dural sinuses: Patent. Lung apices: Probable glass opacities are seen in the upper lobes bilaterally. The largest groundglass opacity is seen in the right apex on image #123 and measures 1.9 cm. Trace pleural fluid is noted on the left. A 6 mm pulmonary nodule is seen in the right upper lobe on image #75. Soft tissues: The visualized pharyngeal soft tissues are normal in appearance noting angiographic phase technique. The oropharyngeal airway appears widely patent. The thyroid gland is heterogeneous. The salivary glands are normal in appearance. No cervical lymphadenopathy is seen. Skeletal structures: The skeletal structures are osteopenic. The calvarium appears intact. The cervical spine is maintained noting mild multilevel spondylosis. Orbits: The bony orbits are intact. Orbital contents are normal as visualized. Sinuses and mastoids: There is complete opacification of the maxillary antra. Thickening and sclerosis of the sinus colunga indicates chronicity. The remaining paranasal sinuses are clear. There is a small right mastoid effusion. The left mastoid air cells are well pneumatized. IMPRESSION: 1. There is no evidence of hemorrhage or mass effect noting angiographic phase technique. 2. Unremarkable CT angiogram of the brain. 3. Unremarkable CT angiogram of the neck. 4. There is a 6 mm right apical pulmonary nodule, as well as ground glass opacities in the upper lobes. These may be on an infectious/inflammatory basis. A follow-up chest CT in 3-4 months time is recommended for reevaluation. 5. Bilateral maxillary sinus disease. ACT 112: Positive. There are findings on this exam that require communication between the performing entity and the patient following Patient Test Result Information Act [place] Act 112) guidelines. Electronically signed by: Fabricio Longo M.D. 08/31/2024 10:48 AM Brain MRI 08/31/24 11:28 MR brain wo con CLINICAL HISTORY: anxiety disorder right-sided headache and difficulty speaking COMPARISON STUDY: None FINDINGS: There is no intra-axial or extra-axial fluid collection, hemorrhage, or mass. There are normal flow voids at the skull base. There is no evidence of restricted diffusion that would suggest a recent stroke. The ventricles and sulci are slightly prominent. There is a few scattered high signal intensity FLAIR white matter lesions most commonly associated with small vessel insufficiency change. There is mucosal thickening in the maxillary sinuses, the ethmoid air cells, and the sphenoid sinus. 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 IMPRESSION: No acute intracranial process identified. ACT 112: Negative or not required by law. Electronically signed by: Casandra Vivar M.D. 08/31/2024 1:12 PM Discharge Plan Visit Data Chief Complaint: Stroke/CVA Symptoms Stated Complaint: CONCERN OF STROKE, "TALKING GIBBERISH", SCREAMING ED Provider: Mac Manriquez Discharge Problem: Stroke-like symptoms, Chest pain, Abdominal pain Patient Disposition: Being Evaluated by Hospitalist Condition: Fair Forms Stand Alone Forms: My [facility] [employer] Prescriptions Prescriptions: No Action amlodipine 5 mg tablet 0 mg PO QPM Patient Comments: Medication currently on hold per caregiver/spouse. olopatadine 0.2 % drops 1 drp ophthalmic (eye) DAILY PRN (Reason: Allergies) dicyclomine 10 mg capsule 10 mg PO BID PRN (Reason: Abdominal Pain) potassium chloride 10 mEq tablet extended release 10 meq PO DAILY furosemide [Lasix] 40 mg tablet 40 mg PO DAILY PRN (Reason: Edema) cholecalciferol (vitamin D3) 50 mcg (2,000 unit) capsule 50 mcg PO QAM epinephrine 0.3 mg/0.3 mL auto-injector 0.3 mg IM Q10M PRN (Reason: hives) Rx Instructions: for 2 doses Spiriva Respimat 1.25 mcg/actuation mist 2 puff inhalation QAM triamcinolone acetonide 0.1 % Cream 1 applic TOPICAL BID PRN (Reason: hives) pantoprazole 40 mg tablet,delayed release (DR/EC) 40 mg PO BID albuterol sulfate 90 mcg/actuation HFA aerosol inhaler 2 puff INHALATION QAM biotin 1 mg Capsule 1 mg PO DAILY Patient Comments: Medication currently on hold per caregiver/spouse. Neuro Renew 1 tab PO QAM Patient Comments: Medication currently on hold per caregiver/spouse. sertraline 50 mg Tablet 25 mg PO HS Hold Instructions: Resume on 08/28/24. Creon 36,000-114,000- 180,000 unit capsule,delayed release(DR/EC) 1 - 2 cap PO DIRECTED MDD 10 CAPS/24HR Hold Instructions: Provider's Order Patient Comments: Take 2 capsules with first bite of each meal, 1 capsule with first bite of snacks (max 10 daily) amoxicillin-pot clavulanate 875-125 mg tablet 1 tab PO BID Qty: 14 0RF ondansetron 4 mg tablet,disintegrating 4 mg PO UD PRN (Reason: nausea and vomiting) Referrals Referrals: Mac Birmingham MD [Primary Care Provider] -
[2024-08-31 09:49] LABS: Hematocrit (blood only) 44.6 % (37.0-47.0); Hemoglobin 15.1 g/dl (12.0-16.0); Immature Granulocytes # (auto) 0.04 K/uL (0.01-0.20); Immature Granulocytes % (auto) 0.4 %; Mean Corpuscular Hemoglobin 28.7 pg (25.0-34.0); Mean Corpuscular Volume 84.8 fL (80.0-100.0); Platelet Count 221 K/uL (130-400); RDW Standard Deviation 44.1 fL (36.4-46.3); Red Blood Count 5.26 M/uL (4.20-5.40); White Blood Count 9.27 K/ul (4.8-10.8)
[2024-08-31] MEDS: diphenhydrAMINE 50 MG/ML VIAL IV ONE (09:50)
--- NOTE | 2024-08-31 10:01 | CT Scan Report ---
CT head/brain wo con CLINICAL HISTORY: neuro deficit, acute stroke suspected. TECHNIQUE: Multiple axial CT images of the head were obtained without contrast. A dose lowering tech nique was utilized adhering to the principles of ALARA. CT DOSE: 630.51 mGy.cm COMPARISON: None FINDINGS: There is no intra-axial or extra-axial fluid collection, hemorrhage, or mass. Ventricles an d sulci are age-appropriate with no midline shift. No focal attenuation abnormality identified. Bone windows are negative. There is bilateral maxillary sinusitis with near complete sinus opacification. IMPRESSION: No acute intracranial process. Bilateral maxillary sinus opacification. ACT 112: Negative or not required by law. The above report was generated using voice recognition software. It may contain grammatical, syntax o r spelling errors. Electronically signed by: Casandra Vivar M.D. 08/31/2024 9:58 AM
[2024-08-31] MEDS: OPTIRAY 320 125ml IV ONE (10:03)
[2024-08-31 10:09] LABS: Alanine Aminotransferase 24 U/L (7-52); Albumin Globulin Ratio 1.3 (0.9-2); Alkaline Phosphatase 74 U/L (34-104); Anion Gap 10 (3-11); Bilirubin,Total 1.5 mg/dl (0.2-1.0); Blood Urea Nitrogen 8 mg/dl (6-23); Calcium 10.3 mg/dl (8.6-10.3); Carbon Dioxide 23 mmol/L (21-32); Chloride 108 mmol/L (98-107); Creatinine Clr Calc Pharmacy 60.1 ml/min; Globulin 3.4 gm/dl (2.5-4.0); Glucose 104 mg/dl (70-99(Fasting)); Magnesium 1.9 mg/dl (1.7-2.4); Potassium 3.9 mmol/L (3.5-5.1); Sodium 141 mmol/L (136-145); Total Protein 7.9 gm/dl (6.0-8.3)
[2024-08-31 10:18] LABS: INR 1.0 (0.9-1.1); Partial Thromboplastin Time 31 Seconds (21-31); Prothrombin Time 11.0 Seconds (9.0-12.0)
--- NOTE | 2024-08-31 10:40 | CT Scan Report ---
ABDOMEN AND PELVIS CT WITH IV CONTRAST CT DOSE: 2423.21mGy*cm HISTORY: abd pain and CP and stroke like symptoms TECHNIQUE: Multiaxial CT images of the abdomen and pelvis were performed following the IV administrat ion of 112 cc of Optiray, A dose lowering technique was utilized adhering to the principles of ALARA . COMPARISON STUDY: 08/26/2024 FINDINGS: No significant interval changes have occurred. Bilateral pulmonary parenchymal scarring and nodularity is once again noted and will be addressed on the dedicated chest CT performed separately. Diffuse hepatic steatosis was again identified. There is a 13.5 mm hypoattenuating lesion in the righ t lobe of the liver which can be seen in retrospect on the prior study. It isn't completely evaluated on today's examination. Statistically it is either a cyst or hemangioma. Diffuse fatty infiltration of the liver is redemonstrated. Coarse calcification in the left lobe is redemonstrated. No gallbladder or bile duct pathology. Small right renal cysts. No obstructive uropathy. No adrenal, pancreatic, or splenic lesion identified. No bowel obstruction or free air. No ascites. No aortic aneurysm or periaortic adenopathy. In the pelvis, there is a small fat-containing right sided ventral hernia which protrudes just latera l to the margin of the psoas muscle. The appendix is not identified. No fluid in the cul-de-sac. Ther e is multiple sigmoid diverticula with no definite evidence of diverticulitis. The uterus is not enla rged. The unopacified urinary bladder is grossly negative. There is pronounced degenerative disc disease at L4-5 and L5-S1. IMPRESSION: Stable exam with no acute process identified. 13.5 mm hypoattenuating lesion in the right lobe of the liver incompletely characterized. Recommend a ultrasound for correlation. ACT 112: Negative or not required by law. The above report was generated using voice recognition software. It may contain grammatical, syntax o r spelling errors. Electronically signed by: Casandra Vivar M.D. 08/31/2024 10:39 AM
--- NOTE | 2024-08-31 10:50 | CT Scan Report ---
CT ANGIOGRAM OF THE BRAIN; CT ANGIOGRAM OF THE NECK CLINICAL HISTORY: Neurological deficit. Stroke like symptoms. COMPARISON STUDY: Unenhanced CT of the brain performed concurrently on 08/31/2024. TECHNIQUE: Following the IV administration of 112 of Optiray 320, CT angiogram of the head and neck w as performed from the aortic arch to the vertex. Images are reviewed in the axial, sagittal, and gi nal planes. 3-D MIPS images are created and assessed. IV contrast was administered without complicati on. All measurements were calculated based on NASCET criteria. A dose lowering technique was utilize d adhering to the principles of ALARA. FINDINGS: Brain parenchyma: There is age-related involutional change noting minimal microangiopathic disease. T here is no evidence of hemorrhage or mass effect noting angiographic phase technique. There is no gabby dence of enhancing mass lesion on the angiogram phase images. The ventricles, sulci, and cisterns are prominent secondary to involutional change. Martines-white matter differentiation is preserved. No extra -axial fluid collection is seen. Thoracic aorta: There is mild atherosclerotic calcification of the thoracic aorta. Visualized portion s of the thoracic aorta are normal in caliber. The aortic arch demonstrates bovine variant anatomy. Right carotid arterial system: The right common carotid artery is widely patent, as are the right int ernal and external carotid arteries. Calcified plaque is noted in the carotid bulb. Left carotid arterial system: The left common carotid artery is widely patent, as are the left senior internet sales consultant al and external carotid arteries. Vertebral arteries: Widely patent bilaterally and codominant. Subclavian arteries: Widely patent bilaterally. Intracranial vasculature: There is mild atherosclerotic calcification of the cavernous carotid and ve rtebral arteries. The internal carotid arteries are patent at the skull base, as are the anterior and middle cerebral arteries bilaterally. The vertebrobasilar system and posterior cerebral arteries are widely patent. The vertebral arteries are codominant. There is no aneurysm, high-grade stenosis, or focal vessel cut off seen throughout the intracranial circulation. Jugular veins: Patent bilaterally. Dural sinuses: Patent. Lung apices: Probable glass opacities are seen in the upper lobes bilaterally. The largest groundglas s opacity is seen in the right apex on image #123 and measures 1.9 cm. Trace pleural fluid is noted o n the left. A 6 mm pulmonary nodule is seen in the right upper lobe on image #75. Soft tissues: The visualized pharyngeal soft tissues are normal in appearance noting angiographic pha se technique. The oropharyngeal airway appears widely patent. The thyroid gland is heterogeneous. The salivary glands are normal in appearance. No cervical lymphadenopathy is seen. Skeletal structures: The skeletal structures are osteopenic. The calvarium appears intact. The cervic al spine is maintained noting mild multilevel spondylosis. Orbits: The bony orbits are intact. Orbital contents are normal as visualized. Sinuses and mastoids: There is complete opacification of the maxillary antra. Thickening and sclerosi s of the sinus colunga indicates chronicity. The remaining paranasal sinuses are clear. There is a smal l right mastoid effusion. The left mastoid air cells are well pneumatized. IMPRESSION: 1. There is no evidence of hemorrhage or mass effect noting angiographic phase technique. 2. Unremarkable CT angiogram of the brain. 3. Unremarkable CT angiogram of the neck. 4. There is a 6 mm right apical pulmonary nodule, as well as ground glass opacities in the upper lobe s. These may be on an infectious/inflammatory basis. A follow-up chest CT in 3-4 months time is recom mended for reevaluation. 5. Bilateral maxillary sinus disease. ACT 112: Positive. There are findings on this exam that require communication between the performing entity and the patient following Patient Test Result Information Act ([place] Act 112) guidelines. Electronically signed by: Fabricio Longo M.D. 08/31/2024 10:48 AM
--- NOTE | 2024-08-31 10:50 | CT Scan Report ---
CT angio chest PE protocol CT DOSE: 2423.21 mGy.cm HISTORY: abd pain and CP and stroke like symptoms. TECHNIQUE: Multiple CTA images of the chest were obtained after the intravenous administration of 112 ml Optiray. Coronal and sagittal MIPS were obtained from the axial data set and were submitted for review. All measurements were obtained according to NASCET criteria. A dose lowering technique was u tilized adhering to the principles of ALARA. COMPARISON STUDY: 08/26/2024 FINDINGS: There is motion artifact due to the difficulty breath holding. Stable left upper lobe resec tion. There is no lobar consolidation or pleural effusion. No pneumothorax. There are a few stable gr oundglass pulmonary opacities and pulmonary nodules. Largest groundglass opacity is at the left lower lobe measuring 2.3 cm series 5 image 290 and largest on the right is at the right lung apex measurin g 1.7 cm, stable. Largest pulmonary nodule is lateral right lower lobe measuring 7 mm, stable. No enl arged adenopathy. No pericardial effusion. There are coronary artery and aortic calcifications. No th oracic aortic dissection or aneurysm. No pulmonary embolism. No acute osseous findings. IMPRESSION: 1. No pulmonary embolism. 2. Stable groundglass pulmonary opacities and nodules. Follow-up chest CT recommended in 6 months. 3. Otherwise as described. ACT 112: Negative or not required by law. The above report was generated using voice recognition software. It may contain grammatical, syntax o r spelling errors. Electronically signed by: Solis Plasencia M.D. 08/31/2024 10:48 AM
[2024-08-31] MEDS ORDERED: PANCREAZE (LIPASE 10,500U) CAP PO SCH (11:45)
[2024-08-31 12:00] LABS: Cholesterol 167 mg/dl (0-200); HDL Cholesterol 38 mg/dl; Triglycerides 185 mg/dl (0-150)
[2024-08-31 12:03] LABS: Appearance Urine Clear (Clear); Glucose Urine UA Negative (Negative)
[2024-08-31 12:15] LABS: Thyroid Stimulating Hormone 3.688 uIu/ml (0.300-4.500)
--- NOTE | 2024-08-31 13:14 | Magnetic Resonance Report ---
MR brain wo con CLINICAL HISTORY: anxiety disorder right-sided headache and difficulty speaking COMPARISON STUDY: None FINDINGS: There is no intra-axial or extra-axial fluid collection, hemorrhage, or mass. There are nor mal flow voids at the skull base. There is no evidence of restricted diffusion that would suggest a r ecent stroke. The ventricles and sulci are slightly prominent. There is a few scattered high signal i ntensity FLAIR white matter lesions most commonly associated with small vessel insufficiency change. There is mucosal thickening in the maxillary sinuses, the ethmoid air cells, and the sphenoid sinus. 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 IMPRESSION: No acute intracranial process identified. ACT 112: Negative or not required by law. Electronically signed by: Casandra Vivar M.D. 08/31/2024 1:12 PM
[2024-08-31 13:22] LABS: Hemoglobin A1C 5.7 % (4.5-5.6)
--- NOTE | 2024-08-31 14:52 | Electrocardiogram Report ---
Test Reason : Blood Pressure : */* mmHG Vent. Rate : 58 BPM Atrial Rate : 58 BPM P-R Int : 142 ms QRS Dur : 84 ms QT Int : 378 ms P-R-T Axes : 100 6 45 degrees QTcB Int : 371 ms Sinus bradycardia with occasional Premature ventricular complexes Nonspecific ST and T wave abnormality Abnormal ECG When compared with ECG of 26-Aug-2024 08:57, Premature ventricular complexes are now Present Nonspecific T wave abnormality now evident in Inferior leads Nonspecific T wave abnormality now evident in Anterolateral leads Confirmed by Mac Beatty ([id number]) on 08/31/2024 2:52:19 PM Referred By: REFERRED SELF Confirmed By: Mac Beatty
[2024-08-31] MEDS: ACETAMINOPHEN 325 MG TAB PO PRN (15:49)
[2024-08-31] MEDS ORDERED: PROMETHAZINE HCL 25 MG TAB PO PRN (19:19)
[2024-08-31 20:37] VITALS: RESP 18
[2024-08-31] MEDS: DICYCLOMINE HCL 20 MG TAB PO SCH (20:51)
[2024-08-31] MEDS: SERTRALINE HCL 50 MG TABLET PO SCH (20:51)
[2024-08-31] MEDS: HEPARIN SOD 5,000 UNIT/0.5 ML VIAL SQ SCH (20:52)
[2024-08-31] MEDS: diphenhydrAMINE 50 MG/ML VIAL IV SCH (20:52)
--- NOTE | 2024-08-31 21:08 | History & Physical Report ---
Date of Service August 31, 2024 Assessment & Plan (1) Anxiety: Plan: See HPI above. (2) Insomnia: Plan: See HPI above. Admission and Anticipated Discharge Date Admission Date: August 31, 2024 History of Present Illness Chief Complaint: Unavailable as patient remains wide awake, alert, interactive with and hospital staff, nodding her head yes or no to questions appropriately, uttering completely unintelligible, guttural sounds, screams, but no words per se, bearing some resemblance to Slovakian slang or Balkan daugherty hymn. Very, very odd behavior of patient brings frequent smiles to patient's 's face th roughout my examination of patient in [facility] ER bed #A9B on 08/31/2024. Primary Care Provider: Mac Birmingham MD 69 years old female with PMH of FULL CODE @ home, obesity with BMI 34.6 (height 167.6 cm; weight 97.2 kg), HTN on amlodipine 5mg PO qpm, allergic conjunctivitis on olopatidine 0.2% ophthalmic solution, 1 gtt OU daily prn allergic conjunctivitis, former tobacco abuse with subsequent diagnosis of COPD, not on home O2 or home steroids, RUL lung CA s/p RULobectomy (2023, 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 Patient also suffers from: (f) acute UTI, for which patient has taken augmentin 875mg/125mg PO bid x 5 doses (08/29/2024, 2 doses; 08/30/2024, 2 doses; 08/31/2024, 1 dose), (g) chronic bilateral maxillary sinusitis, which the patient's , Mr. Osman Resendez ( ), reports has bothered the patient tremendously with constant nasal discharge (without fevers, chills, or sweats), and which the patient has been waiting patiently for the past 3 months to undergo endoscopic sinus surgery with her ENT DrVaishnavi Garcia ([place]) on 08/31/2024. Patient subsequently received "bad news" from the patient's ENT DrVaishnavi Garcia ([place]) earlier in the 08/31/2024 am, that the patient's endoscopic sinus surgery on 08/31/2024 was cancelled due to patient's asymptomatic sinus bradycardia with HR 40-50s / minute, and which alarmed the anesthesiologist who had been tasked with providing anesthesia to the patient while undergoing the anticipated endoscopic sinus surgery on 08/31/2024. Patient subsequently started complaining of her chronic N/V/D/abdominal pain/pelvic pain to the patient's , Mr. Osman Horan ( ), who took the patient into their family car and started driving the patient to [facility] ER for further evaluation of her complaints of her chronic N/V/D/abdominal pain/pelvic pain. While en route to [facility] ER, patient's , Osman Tomas ( ), stated that the patient started acting very very oddly, nodding her head yes or no to questions appropriately, uttering completely unintelligible, guttural sounds, screams, but no words per se, bearing some resemblance to Slovakian slang or Balkan daugherty hymn. Very, very odd behavior of patient brought frequent smiles to patient's 's face in the car as he drove the patient to [facility] ER and throughout my examination of patient in [facility] ER bed #A9B on 08/31/2024. In [facility] ER bed #A9B, patient was afebrile with HR 49, RR 14, O2 sat 97% on room air, and BP 137/81 (08/31/2024, 9:21am). Exam was noted for a patient who remained wide awake, alert, interactive with and hospital staff, nodding her head yes or no to questions appropriately, uttering completely unintelligible, guttural sounds, screams, but no words per se, bearing some resemblance to Slovakian slang or Balkan daugherty hymn. Very, very odd behavior of patient brings frequent smiles to patient's 's face throughout my examination of patient in [facility] ER bed #A9B on 08/31/2024. Labs in [facility] ER bed #A9B included: WBC 9.27, N69 L20 M8 E2 B1, Hb 15.1, MCV 84.8, MCHC 33.9, platelet 221 (08/31/2024, 9:35am). INR 1.0 (08/31/2024, 9:35am). Na 141, K 3.9, BUN 8, creatinine 1.01, glucose 104, Ca 10.3, Mg 1.9, AST 20, ALT 24, ALK PHOS 74, TBili 1.5 (08/31/2024, 9:35am). Lactate 0.8 mmol/L (08/31/2024, 11:49am). Procalcitonin (08/31/2024, 11:49am). Total cholesterol (non-fasting) 167, triglyceride 185, LDL 92, HDL 38 (08/31/2024, 9:35am). TSH 3.688 uIU/mL (08/31/2024, 9:35am). Intact PTH 46.8 pg/mL (08/31/2024, 9:35am). U/A: LE-, nitrite- (08/31/2024, 11:54am). Additional testing in [facility] ER bed #A9B included: CT abd/pelvis with IV contrast (08/31/2024, 9:34am): 1. Stable exam with no acute process identified. 2. 13.5 mm hypoattenuating lesion in the right lobe of the liver incompletely characterized. CTA chest (08/31/2024, 9:34am): 1. No pulmonary embolism. 2. Stable groundglass pulmonary opacities and nodules. CT brain without IV contrast (08/31/2024, 9:34am): 1. No acute bleed, mass, or midline shift. 2. Bilateral maxillary sinus opacification. CTA head/neck (08/31/2024, 9:34am): 1. No evidence of hemorrhage or mass effect noting angiographic phase robert hnique. 2. Unremarkable CT angiogram of the brain. 3. Unremarkable CT angiogram of the neck. 4. 6 mm right apical pulmonary nodule, as well as ground glass opacities in the upper lobes. These may be on an infectious/inflammatory basis. A follow-up chest CT in 3-4 months time is recommended for reevaluation. 5. Bilateral maxillary sinus disease. MRI brain without contrast (08/31/2024, 11:28am): 1. No acute bleed, mass, or midline shift. Patient was subsequently placed in OBSERVATION on the hospitalist service @ [facility] on 08/31/2024 with the following diagnoses: 1. High anxiety disorder, precipitated by patient's disappointment at not being able to undergo much sought after 3 months of waiting for endoscopic sinus surgery with ENT DrVaishnavi Garcia ([place]) as was originally planned for 08/31/2024 am. 2. Insomnia disorder with patient unable to sleep for the past 3 nights. To address #1, patient was started on lorazepam 1mg IV q8 prn anxiety. To address #2, patient was started on benadryl 50mg IV qhs. Patient will be discharged back to her home after breakfast on 09/01/2024, 7:00am, and will follow up with her PCP Dr. aMc Birmingham to solicit outpatient Psychiatric Service consultation. Patient's , Mr. Osman Resendez ( ), concurs. Allergies Allergy/AdvReac Type Severity Reaction Status Date / Time aspirin Allergy Severe welts,turns Unverified 08/23/24 09:05 blue budesonide Allergy Unknown Palpitation Unverified 08/23/24 09:05 [From [email or web address]] s fluticasone furoate Allergy Unknown sob Unverified 08/23/24 09:05 [From Trelegy Ellipta] formoterol Allergy Unknown Palpitation Unverified 08/23/24 09:05 [From [employer]SAFE] s glycopyrrolate Allergy Unknown Palpitation Unverified 08/23/24 09:05 [From [employer]] s Iodinated Contrast Media Allergy Unknown welts Unverified 08/23/24 09:05 olodaterol Allergy Unknown Palpitation Unverified 08/23/24 09:05 [From Stiolto Respimat] s tiotropium Allergy Unknown Palpitation Unverified 08/23/24 09:57 [From Stiolto Respimat] s umeclidinium Allergy Unknown sob Unverified 08/23/24 09:57 [From [facility]] vilanterol Allergy Unknown sob Unverified 08/23/24 09:57 [From [facility]] Home Medications Medication Instructions Recorded Confirmed Type amlodipine 5 mg tablet 0 mg PO QPM 06/20/24 08/31/24 History cholecalciferol (vitamin D3) 50 50 mcg PO QAM 06/20/24 08/31/24 History mcg (2,000 unit) capsule dicyclomine 10 mg capsule 10 mg PO BID PRN Abdominal Pain 06/20/24 08/31/24 History epinephrine 0.3 mg/0.3 mL 0.3 mg IM Q10M PRN hives 06/20/24 08/31/24 History injection, auto-injector furosemide 40 mg tablet (Lasix) 40 mg PO DAILY PRN Edema 06/20/24 08/31/24 His tory olopatadine 0.2 % eye drops 1 drp ophthalmic (eye) DAILY PRN 06/20/24 08/31/24 History Allergies potassium chloride 10 mEq 10 meq PO DAILY 06/20/24 08/31/24 History tablet,extended release tiotropium bromide 1.25 2 puff inhalation QAM 06/20/24 08/31/24 History mcg/actuation mist for inhalation (Spiriva Respimat) Neuro Renew 1 tab PO QAM 08/23/24 08/31/24 History albuterol sulfate 90 mcg/actuation 2 puff inhalation QAM 08/23/24 08/31/24 History aerosol inhaler biotin 1 mg capsule 1 mg PO DAILY 08/23/24 08/31/24 History pantoprazole 40 mg tablet,delayed 40 mg PO BID 08/23/24 08/31/24 History release triamcinolone acetonide 0.1 % 1 applic topical BID PRN hives 08/23/24 08/31/24 History topical cream sertraline 50 mg tablet 25 mg PO HS 08/24/24 08/31/24 History fzhoha-qyjdabqi-drhbhub 1 - 2 cap PO DIRECTED 08/26/24 08/31/24 History 36,000-114,000-180,000 unit capsule,delay rel (Creon) amoxicillin 875 mg-potassium 1 tab PO BID #14 tabs 08/29/24 08/31/24 Rx clavulanate 125 mg tablet ondansetron 4 mg disintegrating 4 mg PO UD PRN nausea and vomiting 08/31/24 08/31/24 History tablet Past Med/Surg History Problem List (Updated 08/31/24 @ 21:36 by Charles Meier MD, PhD) Insomnia Anxiety Abdominal pain (Acute) Chest pain (Acute) Stroke-like symptoms (Acute) Urinary tract infection (Acute) Nausea and vomiting (Acute) Spastic colon (Acute) Abdominal cramping (Acute) Bradycardia Delayed gastric emptying Exocrine pancreatic insufficiency Acute UTI (urinary tract infection) (Acute) Generalized weakness (Acute) Encounter for pre-operative examination Dry mouth (Acute) Dysphagia Maxillary sinusitis Medical History Atherosclerotic heart disease follows w/ Dr Steiner, reason for plavix History of esophageal dilatation (07/2024) Raynauds syndrome History of COVID-19 (02/2024) no hosp; resolved Elevated pancreatic enzyme currently under surveillance GERD (gastroesophageal reflux disease) Gastroparesis eating small meals Fatty liver Neuropathy bilat feet Venous (peripheral) insufficiency occasional bilat edema, has not needed lasix in ~1 year Dysphagia improved since dilation Endometriosis hx Lung cancer (2023) no chemo or radiation Acid reflux COPD (chronic obstructive pulmonary disease) uses inhalers daily, follows w/ [facility] Surgical History History of bronchoscopy Hx of colonoscopy Hx of laparoscopy History of esophagogastroduodenoscopy (EGD) (07/2024) History of lobectomy of lung (04/2023) lung cancer, upper left lobe, [facility], [place] H/O tubal ligation H/O hernia repair History of appendectomy Family History Mother Heart disease Hypertension Social History Smoking Status: Former smoker Tobacco Type: Cigarettes Smoking End Date: 2004; Second Hand Exposure: No; Do You Dip or Chew Tobacco: No; Hx Alcohol Use: No Hx Substance Use: No Preferred Language: Polish Communication Ability: Effective Data Miner Required: No Beliefs That Will Affect Care: None marital status: Current Living Situation: Spouse current occupational status: retired Other Information That Helps Us Care for You: No Feels Safe at Home: Yes Safety Concerns: Feels Safe At This Time Gender Identity: Female Assistive Devices: Glasses Review of Systems Constitutional: Unavailable as patient remains wide awake, alert, interactive with and hospital staff, nodding head yes or no to questions appropriately, uttering completely unintelligible, guttural sounds, screams, but no words per se, bearing some resemblance to Slovakian slang or Balkan daugherty hymn. Very, very odd behavior of patient brings frequent smiles to patient's 's face throughout my examination of patient in [facility] ER bed #A9B on 08/31/2024. Physical Exam Constitutional: General: Unavailable as patient remains wide awake, alert, interactive with and hospital staff, nodding head yes or no to questions appropriately, uttering completely unintelligible, guttural sounds, screams, but no words per se, bearing some resemblance to Slovakian slang or Balkan daugherty hymn. Very, very odd behavior of patient brings frequent smiles to patient's 's face throughout my examination of patient in [facility] ER bed #A9B on 08/31/2024. HEENT: Normocephalic, atraumatic. No nystagmus, gaze paresis, anisocoria, miosis, mydriasis, hyphema, scleral injection, conjunctivitis, or pterygium. No otorrhea or rhinorrhea. No pharyngeal erythema, edema, or discharge. Neck: Supple, no stridor, bruit, goiter, or hepato-jugular reflux. Jugular venous pressure is estimated to be 3 cm above the sternal angle of Christopher, which in turn, is 5 cm above the level of the right atrium; with jugular venous pressure estimated to be 8 cm, then, there is no jugular venous distention on 08/31/2024. Lymphatics: No cervical (anterior/posterior), supraclavicular, infraclavicular, axillary, epitrochlear, or inguinal adenopathy. Chest: Symmetric rise and fall with respirations. Non-tender to palpation. Lungs: Clear to auscultation and percussion. Heart: Regular rate and rhythm. S1 and S2 noted. No S3 or S4 summation gallop. No tripartite friction rub. Grade II/ early systolic murmur @ LLSB without radiation to the carotids, axilla, or back, and which remains invariant in regards to the respiratory cycle. Abdomen: Soft, non-tender, non-distended. No rebound, guarding, Mcdaniel's sign, or organomegaly. Bowel sounds auscultated in all 4 quadrants. Extremities: No clubbing, cyanosis, or edema. Skin: No decubitus ulcer or enanthem or exanthem. Neuro: Awake and oriented in regards to person, place, time, and situation. DTR+. 5/5 motor strength in all 4 extremities, both proximally and distally. No myoclonus or tics or tremors. Genito-urinary: No urethral discharge. No larson catheter. Results & Data Results & Data Vital Signs (Past 12 Hours) Vital Signs Temp Pulse Pulse Pulse Resp BP BP 08/31/24 20:35 36.5 C 51 L 18 129/84 08/31/24 14:10 36.7 C 57 L 16 126/81 08/31/24 13:28 54 L 18 148/79 H 08/31/24 12:00 48 L 22 141/81 H 08/31/24 11:28 48 L 12 162/96 H 08/31/24 11:19 50 L 17 162/96 H 08/31/24 11:04 49 L 14 166/92 H 08/31/24 10:49 48 L 17 194/98 H 08/31/24 10:34 49 L 16 177/90 H 08/31/24 10:19 55 L 17 177/90 H 08/31/24 10:16 66 18 177/87 H 08/31/24 10:04 60 19 177/87 H 08/31/24 09:56 49 L 08/31/24 09:21 79 18 156/110 H 08/31/24 09:21 08/31/24 09:21 49 L 14 137/81 Pulse Ox O2 Del Method 08/31/24 20:35 94 Room Air 08/31/24 14:10 96 Room Air 08/31/24 13:28 95 Room Air 08/31/24 12:00 98 Room Air 08/31/24 11:28 95 Room Air 08/31/24 11:19 96 Room Air 08/31/24 11:04 95 Room Air 08/31/24 10:49 97 Room Air 08/31/24 10:34 97 Room Air 08/31/24 10:19 98 Room Air 08/31/24 10:16 98 Room Air 08/31/24 10:04 98 Room Air 08/31/24 09:56 08/31/24 09:21 98 Room Air 08/31/24 09:21 97 Room Air 08/31/24 09:21 97 Room Air Code Status & VTE Plan VTE Prophylaxis Plan VTE Prophylaxis will be ordered: Yes PG Care Time/CCT Total # of Minutes Spent Total Time Spent with Patient: Total time spent is greater than 50% in coordination of care (as documented) at patient's floor/unit and/or counseling patient: Coding Level of Care Code 89826 INT INP/OBS CARE 2/55MIN Diagnoses Anxiety F41.9 Insomnia due to other mental disorder F51.05; F99 Insomnia type: due to other mental disorder (2) Insomnia Insomnia type: due to other mental disorder Qualified Code(s): F51.05 - Insomnia due to other mental disorder; F99 - Mental disorder, not otherwise specified
[2024-09-01] MEDS: ONDANSETRON INJ 2 MG/ML 2 ML VIAL IV PRN (02:03)
--- NOTE | 2024-09-01 07:48 | Discharge Summary ---
Discharge Summary Date of Service September 01, 2024 Principal Dx & Hospital Course #1 = Principal Diagnosis Admission HPI Per Admitting Provider 69 years old female with PMH of FULL CODE @ home, obesity with BMI 34.6 (height 167.6 cm; weight 97.2 kg), HTN on amlodipine 5mg PO qpm, allergic conjunctivitis on olopatidine 0.2% ophthalmic solution, 1 gtt OU daily prn allergic conjunctivitis, former tobacco abuse with subsequent diagnosis of COPD, not on home O2 or home steroids, RUL lung CA s/p RULobectomy (2023, 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 Patient also suffers from: (f) acute UTI, for which patient has taken augmentin 875mg/125mg PO bid x 5 doses (08/29/2024, 2 doses; 08/30/2024, 2 doses; 08/31/2024, 1 dose), (g) chronic bilateral maxillary sinusitis, which the patient's , Mr. Osman Resendez ( ), reports has bothered the patient tremendously with constant nasal discharge (without fevers, chills, or sweats), and which the patient has been waiting patiently for the past 3 months to undergo endoscopic sinus surgery with her ENT Dr. Janak Garcia ([place], [place]) on 08/31/2024. Patient subsequently received "bad news" from the patient's ENT DrVaishnavi Garcia ([place], [place]) earlier in the 08/31/2024 am, that the patient's endoscopic sinus surgery on 08/31/2024 was cancelled due to patient's asymptomatic sinus bradycardia with HR 40-50s / minute, and which alarmed the anesthesiologist who had been tasked with providing anesthesia to the patient while undergoing the anticipated endoscopic sinus surgery on 08/31/2024. Patient subsequently started complaining of her chronic N/V/D/abdominal pain/pelvic pain to the patient's , Mr. Osman Horan ( ), who took the patient into their family car and started driving the patient to [facility] ER for further evaluation of her complaints of her chronic N/V/D/abdominal pain/pelvic pain. While en route to [facility] ER, patient's , Osman Tomas ( ), stated that the patient started acting very very oddly, nodding her head yes or no to questions appropriately, uttering completely unintelligible, guttural sounds, screams, but no words per se, bearing some resemblance to Slovakian slang or Balkan daugherty hymn. Very, very odd behavior of patient brought frequent smiles to patient's 's face in the car as he drove the patient to [facility] ER and throughout my examination of patient in [facility] ER bed #A9B on 08/31/2024. In [facility] ER bed #A9B, patient was afebrile with HR 49, RR 14, O2 sat 97% on room air, and BP 137/81 (08/31/2024, 9:21am). Exam was noted for a patient who remained wide awake, alert, interactive with and hospital staff, nodding her head yes or no to questions appropriately, uttering completely unintelligible, guttural sounds, screams, but no words per se, bearing some resemblance to Slovakian slang or Balkan dauhgerty hymn. Very, very odd behavior of patient brings frequent smiles to patient's 's face throughout my examination of patient in [facility] ER bed #A9B on 08/31/2024. Labs in [facility] ER bed #A9B included: WBC 9.27, N69 L20 M8 E2 B1, Hb 15.1, MCV 84.8, MCHC 33.9, platelet 221 (08/31/2024, 9:35am). INR 1.0 (08/31/2024, 9:35am). Na 141, K 3.9, BUN 8, creatinine 1.01, glucose 104, Ca 10.3, Mg 1.9, AST 20, ALT 24, ALK PHOS 74, TBili 1.5 (08/31/2024, 9:35am). Lactate 0.8 mmol/L (08/31/2024, 11:49am). Procalcitonin (08/31/2024, 11:49am). Total cholesterol (non-fasting) 167, triglyceride 185, LDL 92, HDL 38 (08/31/2024, 9:35am). TSH 3.688 uIU/mL (08/31/2024, 9:35am). Intact PTH 46.8 pg/mL (08/31/2024, 9:35am). U/A: LE-, nitrite- (08/31/2024, 11:54am). Additional testing in [facility] ER bed #A9B included: CT abd/pelvis with IV contrast (08/31/2024, 9:34am): 1. Stable exam with no acute process identified. 2. 13.5 mm hypoattenuating lesion in the right lobe of the liver incompletely characterized. CTA chest (08/31/2024, 9:34am): 1. No pulmonary embolism. 2. Stable groundglass pulmonary opacities and nodules. CT brain without IV contrast (08/31/2024, 9:34am): 1. No acute bleed, mass, or midline shift. 2. Bilateral maxillary sinus opacification. CTA head/neck (08/31/2024, 9:34am): 1. No evidence of hemorrhage or mass effect noting angiographic phase technique. 2. Unremarkable CT angiogram of the brain. 3. Unremarkable CT angiogram of the neck. 4. 6 mm right apical pulmonary nodule, as well as ground glass opacities in the upper lobes. These may be on an infectious/inflammatory basis. A follow-up chest CT in 3-4 months time is recommended for reevaluation. 5. Bilateral maxillary sinus disease. MRI brain without contrast (08/31/2024, 11:28am): 1. No acute bleed, mass, or midline shift. Patient was subsequently placed in OBSERVATION on the hospitalist service @ [facility] on 08/31/2024 with the following diagnoses: 1. High anxiety disorder, precipitated by patient's disappointment at not being able to undergo much sought after 3 months of waiting for endoscopic sinus surgery with ENT Dr. Janak Garcia ([place], [place]) as was originally planned for 08/31/2024 am. 2. Insomnia disorder with patient unable to sleep for the past 3 nights. To address #1, patient was started on lorazepam 1mg IV q8 prn anxiety in [facility] Med-Surg bed #E308-1. High anxiety RESOLVED without patient receiving this medication. Hence, patient did not receive a prescription for this medication on hospital discharge home on 09/01/2024. To address #2, patient received benadryl 50mg IV x 1 dose (08/31/2024, 9:50am) in [facility] ER bed #A9B, and benadryl 50mg IV qhs x 1 dose (08/31/2024, 8:52pm) in [facility] Med-Surg bed #E308-1. Insomnia disorder RESOLVED. Patient will not continue this medication,however, on hospital discharge home on 09/01/2024, given its potential to cause dizziness/lightheadedness during the daytime hours when patient is most likely to be awake/active. Patient as subsequently discharged back to her home after breakfast on 09/01/2024, 7:00am, with an electronic prescription for phenergan 25mg PO q6 prn nausea/vomiting, #120 tablets, no refills, electronically transmitted to her [facility] store [id number], [address], [place] [address], on 09/01/2024, prior to hospital discharge back to her home after breakfast on 09/01/2024, 7:00am. Patient was advised to follow up with her PCP Dr. Mac Birmingham within 5-7 days of hospital discharge to solicit outpatient Psychiatry Service consultation to address patient's high anxiety disorder and insomnia disorder. Patient's , Mr. Osman Resendez ( ), concurs. Discharge Exam Constitutional General: Comfortable, cooperative, coherent. Wide awake and alert. Not confused, lethargic, or obtunded. Patient speaks in complete, fluent, and articulate sentences without pause, interruption, cough, or wheeze. HEENT: Normocephalic, atraumatic. No nystagmus, gaze paresis, anisocoria, miosis, mydriasis, hyphema, scleral injection, conjunctivitis, or pterygium. No otorrhea or rhinorrhea. No pharyngeal erythema, edema, or discharge. Neck: Supple, no stridor, bruit, goiter, or hepato-jugular reflux. Jugular venous pressure is estimated to be 3 cm above the sternal angle of Christopher, which in turn, is 5 cm above the level of the right atrium; with jugular venous pressure estimated to be 8 cm, then, there is no jugular venous distention on 08/31/2024. Lymphatics: No cervical (anterior/posterior), supraclavicular, infraclavicular, axillary, epitrochlear, or inguinal adenopathy. Chest: Symmetric rise and fall with respirations. Non-tender to palpation. Lungs: Clear to auscultation and percussion. Heart: Regular rate and rhythm. S1 and S2 noted. No S3 or S4 summation gallop. No tripartite friction rub. Grade II/ early systolic murmur @ LLSB without radiation to the carotids, axilla, or back, and which remains invariant in regards to the respiratory cycle. Abdomen: Soft, non-tender, non-distended. No rebound, guarding, Mcdaniel's sign, or organomegaly. Bowel sounds auscultated in all 4 quadrants. Extremities: No clubbing, cyanosis, or edema. Skin: No decubitus ulcer or enanthem or exanthem. Neuro: Awake and oriented in regards to person, place, time, and situation. DTR+. 5/5 motor strength in all 4 extremities, both proximally and distally. No myoclonus or tics or tremors. Genito-urinary: No urethral discharge. No larson catheter. Discharge Plan Discharge Items Patient Disposition: Home - Self-Care Reason For Visit: ANXIETY Discharge Diagnosis: 1. High anxiety disorder, precipitated by patient's disappointment at not being able to undergo much sought after 3 months of waiting for endoscopic sinus surgery with ENT Dr. Janak Garcia ([place], [place]) as was originally planned for 08/31/2024 am. 2. Insomnia disorder with patient unable to sleep for the past 3 nights. Condition on Discharge: Fair Activity: Resume your previous activity Lifting: Gradually increase as tolerated Bathing: No limitations Sexual Activity: When tolerated Exercise/Sports: As tolerated Weightbearing: Full weightbearing Non-emergency contact: Primary Care Provider Call non-emergency contact if: you have any medication questions Follow-up/Referrals: Mac Birmingham MD [Primary Care Provider] - Diet: Heart Healthy Addtl Attending Provider Instructions: See your PCP Dr. Mac Birmingham to solicit outpatient Psychiatry Service evaluation of high anxiety disorder. Pending Studies at Discharge: No Stand-Alone Forms: [employer], Smoking Cessation Medications and DC Order Prescriptions: New promethazine 25 mg Tablet 25 mg PO Q6H PRN (Reason: nausea and vomiting) Qty: 120 0RF Continued amlodipine 5 mg tablet 0 mg PO QPM Patient Comments: Medication currently on hold per caregiver/spouse. olopatadine 0.2 % drops 1 drp ophthalmic (eye) DAILY PRN (Reason: Allergies) dicyclomine 10 mg capsule 10 mg PO BID PRN (Reason: Abdominal Pain) cholecalciferol (vitamin D3) 50 mcg (2,000 unit) capsule 50 mcg PO QAM epinephrine 0.3 mg/0.3 mL auto-injector 0.3 mg IM Q10M PRN (Reason: hives) Rx Instructions: for 2 doses Spiriva Respimat 1.25 mcg/actuation mist 2 puff inhalation QAM triamcinolone acetonide 0.1 % Cream 1 applic TOPICAL BID PRN (Reason: hives) pantoprazole 40 mg tablet,delayed release (DR/EC) 40 mg PO BID albuterol sulfate 90 mcg/actuation HFA aerosol inhaler 2 puff INHALATION QAM biotin 1 mg Capsule 1 mg PO DAILY Patient Comments: Medication currently on hold per caregiver/spouse. Neuro Renew 1 tab PO QAM Patient Comments: Medication currently on hold per caregiver/spouse. amoxicillin-pot clavulanate 875-125 mg tablet 1 tab PO BID Qty: 14 0RF Discontinued potassium chloride 10 mEq tablet extended release 10 meq PO DAILY furosemide [Lasix] 40 mg tablet 40 mg PO DAILY PRN (Reason: Edema) sertraline 50 mg Tablet 25 mg PO HS Hold Instructions: Resume on 08/28/24. Creon 36,000-114,000- 180,000 unit capsule,delayed release(DR/EC) 1 - 2 cap PO DIRECTED MDD 10 CAPS/24HR Hold Instructions: Provider's Order Patient Comments: Take 2 capsules with first bite of each meal, 1 capsule with first bite of snacks (max 10 daily) ondansetron 4 mg tablet,disintegrating 4 mg PO UD PRN (Reason: nausea and vomiting) Discharge Orders: Discharge Order (Routine); Ordered 09/01/24 Ordered By: Charles Meier Admission Data Admit Date/Time: 08/31/24 11:29 Attending Provider: Charles Meier Admit Provider: Charles Meier Primary Care Provider: Mac Birmingham Other Providers: Charles Meier; Abdullahi Li Hospital Stay Data Consultations 08/31/24 11:23 ED Decision to Admit Stat 08/31/24 12:27 Consult Otolaryngology (Head and Neck) Routine Diagnostic Imagining Performed 08/31/24 09:34 CT abd pelvis IV con only Stat CT angio chest PE protocol Stat CT angio head w con Stat CT angio neck with con Stat CT head/brain wo con Stat 08/31/24 11:28 MRI Brain [MR brain wo con] Stat Pending Results Patient Have Any Pending Studies at Discharge: No Discharge Instructions Given to Patient (Per Discharging Provider) See your PCP Dr. Mac Birmingham to solicit outpatient Psychiatry Service evaluation of high anxiety disorder. Total Time Total Time Spent Total Time Spent (In Minutes): 35 minutes. Of this time period, 19 minutes were spent in coordinating patient's discharge. Coding Level of Care Code 02395 INP/OBS DISCH >30 MIN
[2024-09-01] MEDS: AMOXICILLIN/CLAVULANATE 875 MG TAB PO SCH (09:00)
[2024-09-01] MEDS: UMECLIDINIUM BROMIDE 62.5MCG/BLISTER 7 PUFFS/INHALER INH SCH (09:01)
[2024-09-01 12:31] VITALS: BP 125/82; PULSE 63; TEMP 97.9; O2SAT 96
== END 2024-09-01 13:34 | disposition home or self-care (01) ==
LOC: ED 09:20 → 3E 09:20